=== PATIENT | male | born 1980 | race Caucasian/White ===

== ENCOUNTER 2016-09-14 15:07 | Inpatient (IN) | payer BC, OTHER ==
[~2016-09-14] VITALS: Ht 177.8 cm; Wt 83.5 kg
[2016-09-14] MEDS ORDERED: CLONIDINE HCL 0.1 MG TABLET PO PRN (20:00)
[2016-09-14] MEDS ORDERED: BUPRENORPHINE HCL 2 MG TAB.SUBL SL PRN (20:00)
[2016-09-14] MEDS ORDERED: DICYCLOMINE HCL 20 MG TABLET PO PRN (20:00)
[2016-09-14] MEDS ORDERED: LORAZEPAM 2 MG/1 ML VIAL IM PRN (20:00)
[2016-09-14] MEDS ORDERED: diphenhydrAMINE 50 MG CAPSULE PO PRN (20:00)
[2016-09-14] MEDS ORDERED: LOPERAMIDE HCL 2 MG CAPSULE PO PRN ×2 (20:00)
[2016-09-14] MEDS ORDERED: MIRALAX 17 GM POWD.PACK PO PRN (20:00)
[2016-09-14] MEDS ORDERED: LORAZEPAM 1 MG TABLET PO PRN ×2 (20:00)
[2016-09-14] MEDS ORDERED: MAGNESIUM HYDROXIDE 30 ML LIQUID UDC PO PRN (20:00)
[2016-09-14] MEDS ORDERED: ACETAMINOPHEN 325 MG TABLET PO PRN (20:00)
--- NOTE | 2016-09-14 20:10 | NUR ---
ADMISSION NOTE: Patient is a 35 y.o male admitted at [facility] at approximately 2010 pm of 09/14/16 for medically supervised withdrawal from Opiates, Benzo & ETOH dependence. Body search done and skin check performed in Room 315, no contraband found. Pt noted with on both arms d/t eczema. Pt is 5'10" tall and weighs 185 lbs in a standing scale. Pt is cooperative during assessment. Patient is oriented to floor unit and room. Patient follows a regular diet at home with no known food and drug allergies. Pt wishes to be full Code. Patient is alert & oriented x4, ambulatory with a steady gait. Speech is clear and audible. Patient appears anxious but cooperative during interview. No shortness of breath noted. Respiration even & unlabored. Abdomen soft & non-distended. Bowel sounds active in all four quadrants. Patient complains of 7/10 body aches, nausea, anxiety & 7/10 headache. Pt denies any sweating, chills & diarrhea. No hand tremors noted. COWS 13 CIWA 10 noted. Vitals upon admission: B/P 131/95, [place] 76, Temp 98.2, RR 16, O2Sat 99%. Patient noted with past medical history of Anxiety, Depression, GERD, Insomnia, Bipolar disorder, Asthma, Chronic Back Pain, Back Surgery, herniated disk, Pancreatitis (2013), history of Seizure d/t benzo and ETOH withdrawal (May 2016). Pt reported attempt of suicide in the past. Pt currently denies SI/HI. Pt was able to provide urine sample for drug screen and is voiding clear yellow urine with no problems. Substance use: 1. ETOH- Pt drinks 1 pint of whiskey or 6-10 cans of beer daily for 18 days. Last drink was 6 beers on 09/13/16. Pt has been drinking since 18 years old. 2. Valium- Pt has been taking prescribed Valium 10-15mg daily for for anxiety for 18 days. 3. [place]- Pt used prescription [place] 50-60mg daily for 18 days. Last use was 20mg on the day of admission 09/14/16. Pt is not taking medication as prescribed. Pt has been using [place] for his back pain since 2012. 4. Morphine- Pt uses 10-20mg intravenously daily for 18 days. Last use was 20mg the day prior to admission 09/13/16. Pt has been using since 2013. 5. Fentanyl- Pt uses intranasally in an unknown amount. Pt uses 3-4times a week for 18 days. Last use was 09/13/16. Pt has reccently started using it this year. 6. Cocaine- Pt uses 1-2 grams daily for 18 days. Last use 2 grams on the day of admission 09/14/16. 7. Marijuana- Pt uses 2-3 grams daily for 18 days. last use was 2 grams on the day of admission 09/14/16. Treatment History: -[facility] for 90 days (October to January 2016) -[facility] for 12 days ended 08/28/2015 -[facility] for 60 days (june to Jul 2015) Patient denies being hospitalized in the last 30 days. Patient reports his longest period of sobriety was for 90 days from October 2015 to January 2016. Patient reports symptoms when he does not use as tremors, blurred vision, headache, body aches, sweating, chills, nausea, stomach cramps, restless legs, anxiety. Last Bowel movement was yesterday. Patient smokes 10 cigarettes daily. Patient has been seeing his PCP Dr. Veena Man. Urine drug screen came back positive for Opiates, Cocaine & Cannabinoids. Fall & Seizure precautions are in place. All needs attended & met. Safety precautions are in place. Bed locked in lowest position. Both side rails padded & up. Call light within pt's reach. Dr. Rowe has seen pt. Awaiting for admission order. Will continue to monitor patient.
[2016-09-14] MEDS ORDERED: THIAMINE HCL 200 MG/2 ML VIAL IM ONE (21:00)
[2016-09-14 21:27] LABS: BASOPHILS # (AUTO) 0.4 K/uL (0.0-0.2); BASOPHILS % (AUTO) 2.6 % (0.0-2.0); EOSINOPHILS # (AUTO) 0.6 K/uL (0.0-0.7); EOSINOPHILS % (AUTO) 3.9 % (0.0-7.0); HEMATOCRIT 42.7 % (40.0-50.0); HEMOGLOBIN 14.7 g/dL (14.0-18.0); LYMPHOCYTES # (AUTO) 2.6 K/uL (0.8-4.8); LYMPHOCYTES % (AUTO) 17.5 % (20.5-51.5); MEAN CORPUSCULAR HEMOGLOBIN 31.2 uug (27.0-31.0); MEAN CORPUSCULAR HGB CONC 34 g/dL (32.0-37.0); MEAN CORPUSCULAR VOLUME 90.8 fL (82.0-92.0); MONOCYTES # (AUTO) 1.1 K/uL (0.1-1.30); MONOCYTES % (AUTO) 7.1 % (0.0-11.0); NEUTROPHILS # (AUTO) 10.3 K/uL (1.8-8.9); NEUTROPHILS % (AUTO) 68.9 % (38.5-71.5); PLATELET COUNT (AUTO) 377 K/uL (150-450); RED BLOOD CELL COUNT(AUTO) 4.71 MIL/uL (4.70-6.10); RED CELL DISTRIBUTION WIDTH 13.4 % (11.5-14.5)
[2016-09-14] MEDS ORDERED: ALBUTEROL SULFATE 8 GM HFA.AER.AD IH PRN (21:30)
[2016-09-14] MEDS ORDERED: BUPRENORPHINE HCL 2 MG TAB.SUBL SL SCH ×2 (21:30→22:00)
[2016-09-14] MEDS ORDERED: DIAZEPAM 10 MG TABLET PO PRN ×2 (21:30)
[2016-09-14] MEDS ORDERED: DIAZEPAM 10 MG TABLET PO SCH ×2 (21:30→22:00)
[2016-09-14] MEDS ORDERED: DIAZEPAM 5 MG TABLET PO PRN (21:30)
[2016-09-14 21:35] LABS: ETHANOL < 3 MG/DL (0-0)
[2016-09-14 21:49] LABS: *AMPHETAMINE, URINE NEGATIVE (NEGATIVE); *BARBITURATE, URINE NEGATIVE (NEGATIVE); *CANNABINOID, URINE POSITIVE (NEGATIVE); *COCCAINE, URINE POSITIVE (NEGATIVE); *OPIATE, URINE POSITIVE (NEGATIVE); *PHENCYCLIDINE SCREEN,URINE NEGATIVE (NEGATIVE)
[2016-09-14 21:54] LABS: BAND % (MANUAL) 3 % (0-10); EOSINOPHILS % (MANUAL) 2 % (0-8); LYMPHOCYTES % (MANUAL) 18 % (20-40); MONOCYTES % (MANUAL) 6 % (2-10); NEUTROPHILS % (MANUAL) 71 % (42-75); PLATELET ESTIMATE ADEQUATE
[2016-09-14 21:58] LABS: ALANINE AMINOTRANSFERASE 30 U/L (16-63); ALBUMIN 3.9 g/dL (3.4-5.0); ALKALINE PHOSPHATASE 65 U/L (50-136); AMYLASE 50 U/L (25-115); ASPARTATE AMINOTRANSFERASE 22 U/L (15-37); BILIRUBIN,TOTAL 0.3 mg/dL (0.2-1.0); CALCIUM 9.1 mg/dL (8.5-10.1); CARBON DIOXIDE 30 mmol/L (21-32); CHLORIDE 105 mmol/L (98-107); CREATININE 0.8 mg/dL (0.6-1.3); GFR 109 mL/min (>60); GLUCOSE 75 mg/dL (74-106); LIPASE 114 U/L (73-393); POTASSIUM 4.2 mmol/L (3.5-5.1); SODIUM SERUM 142 mmol/L (136-145); TOTAL PROTEIN, SERUM 7.4 g/dL (6.4-8.2); UREA NITROGEN, BLOOD 10 mg/dL (7-18)
[2016-09-14 21:59] LABS: THYROID STIMULATING HORMONE 1.486 mIU/mL (0.358-3.740)
[2016-09-14 22:00] LABS: HIV-1 p24 ANTIGEN NON REACTIVE (NONREACTIVE); HIV-1/2 ANTIBODY NON REACTIVE (NONREACTIVE)
--- NOTE | 2016-09-14 22:11 | NUR ---
Prn administration Patient verbalized 8/10 body aches, 7/10 headache, and nausea. PRN Motrin, Robaxin, Zofran & Benadryl given as ordered. Will reassess for effectiveness of medicaiton. Will continue to monitor.
[2016-09-14] MEDS: IBUPROFEN 600 MG TABLET PO PRN (22:12)
[2016-09-14] MEDS: METHOCARBAMOL 750 MG TABLET PO PRN (22:12)
[2016-09-14] MEDS ORDERED: BUPRENORPHINE HCL 2 MG TAB.SUBL SL ONE (22:16)
[2016-09-14] MEDS ORDERED: DIAZEPAM 10 MG TABLET ONE (22:16)
[2016-09-14] MEDS: ONDANSETRON ODT 4 MG TAB.RAPDIS SL PRN (22:20)
--- NOTE | 2016-09-14 23:11 | NUR ---
PRN reassessment Patient verbalized relief from pain. 3/10 body aches and 3/10 headache noted at this time. Improved nausea noted. Benadryl given was not effective at this time. Pt still having trouble sleeping. will contiue to monitor.
[2016-09-15] VITALS: BP 125/84
[2016-09-15] MEDS ORDERED: DICY10CA59 PO (03:25)
[2016-09-15] MEDS ORDERED: PRAZ5CAP2 PO (03:34)
[2016-09-15] MEDS ORDERED: QUET300T2 PO (03:34)
[2016-09-15] MEDS ORDERED: IBUP-23 PO (03:34)
[2016-09-15] MEDS ORDERED: OMEP20TA20 PO (03:34)
[2016-09-15] MEDS ORDERED: Celexa (03:34)
[2016-09-15] MEDS ORDERED: DIVA500T2 PO (03:34)
[2016-09-15] MEDS ORDERED: DIAZ5TAB PO (03:34)
[2016-09-15] MEDS ORDERED: ALBU18HF2 INH (03:35)
[2016-09-15 04:00] VITALS: BP 120/81
[2016-09-15] MEDS: HYDROXYZINE PAMOATE 25 MG CAPSULE PO PRN (04:31)
[2016-09-15] MEDS: KETOROLAC TROMETHAMINE 30 MG INJ IM PRN ×2 (04:32→12:21)
[2016-09-15] MEDS: ONDANSETRON ODT 4 MG TAB.RAPDIS SL PRN ×3 (04:32→20:40)
--- NOTE | 2016-09-15 04:32 | NUR ---
Prn administration Patient complained of 7/10 body aches, sweating, chills, anxiety, mild headache & nausea. Bilateral hand tremors noted. COWS 13 CIWA 9 noted. Vitals stable. temp 98.0, [place] 65, RR 16, O2Sat 95% B/P 120/81. Pt was given PRN Toradol, Vistaril, Zodran & Subutex for withdrawals. Safety precautions in place. Will reassess in 1 hour for effectiveness of medicaiton.
[2016-09-15] MEDS ORDERED: KETOROLAC TROMETHAMINE 30 MG INJ ONE (04:36)
--- NOTE | 2016-09-15 05:32 | NUR ---
Prn Reassessment Patient verbalized a relief from pain. No nausea noted at this time. Patient appears calm. Improved tremors noted. COWS 6 CIWA 4 at this time. PRN medication effective. will continue to monitor patient.
--- NOTE | 2016-09-15 07:01 | NUR ---
END OF SHIFT NOTE: Patient is a 35 y/o male admitted on 09/14/16 for ETOH, Opiates & Benzo dependence. Patient with past medical history of GERD, Insomnia, Bipolar, Anxiety, Depression, Asthma, Chronic back pain, back surgery, Pancreatitis (2013), seizure d/t benzo withdrawal. pateitn is trisha regular diet with no known food and drug allergies. Full Code status. Patient with eczema noted on both arms. Last COWS 6 CIW 4 noted. Pt was given PRN benadryl, Motrin, Robaxin, Zofran, Toradol, vistaril, Zofran PO, & Zofran IM. Vitals WNL. Pt was having trouble sleep ing and only slept forPt slept for 1 hour. Pt consumed 855ml of fluids. Voided 2x with no bowel movement. All needs attended & met. Safety precautions are in palce. Will endorse pt to day shift nurse.
[2016-09-15] MEDS: ONDANSETRON 4 MG/2 ML VIAL IM PRN ×2 (07:12→17:35)
--- NOTE | 2016-09-15 07:35 | NUR ---
START OF SHIFT Received report from night nurse. 35 year old male patient admitted on 09/14/16 for ETOH/Benzo/Opiate/Cocaine/Marijuana dependence. Pt reports using at this rate for 18 days. Pt has been placed on a 5 day Subutex taper, and 5 day Valium taper and is tolerating well. Pt has hx of GERD, Insomnia, Bipolar, anxiety, depression, asthma, chronic back pain, back surgery, pancreatitis, withdrawal induced seizure and stress induced eczema. NKA reported, full code and regular diet. PRN Zofran x2, Benadryl, Motrin, Robaxin, Toradol, Vistaril and Subutex. Vital signs remain WNL. Most recent COWS 6 and CIWA 4. All needs met at this time. Safety precautions are in place, will continue to monitor.
[2016-09-15] MEDS: PANTOPRAZOLE SODIUM 40 MG TABLET.DR PO SCH (07:57)
[2016-09-15 08:17] VITALS: BP 109/72
[2016-09-15] MEDS: FOLIC ACID 1 MG TABLET PO SCH (08:54)
[2016-09-15] MEDS: MULTIVITAMINS,THERAPEUTIC TABLET PO SCH (08:54)
[2016-09-15] MEDS: THIAMINE HCL 100 MG TABLET PO SCH (08:54)
[2016-09-15] MEDS: DIAZEPAM 10 MG TABLET PO SCH ×3 (08:54→20:23)
[2016-09-15] MEDS: LIDOCAINE 5% PATCH TD SCH (08:55)
[2016-09-15] MEDS: BUPRENORPHINE HCL 2 MG TAB.SUBL SL SCH ×4 (08:55→20:26)
[2016-09-15] MEDS ORDERED: HYDROCORTISONE 1% LOTION 118 ML BOTTLE TOP SCH (09:00)
[2016-09-15] MEDS ORDERED: TUBERCULIN,PURIF.PROT.DERIV. 5 TU/0.1 ML TEST ID ONE (09:00)
[2016-09-15] MEDS ORDERED: GABAPENTIN 300 MG CAPSULE PO SCH ×2 (09:00→21:00)
[2016-09-15] MEDS ORDERED: DIAZEPAM 10 MG TABLET PO ONE (11:30)
--- NOTE | 2016-09-15 11:39 | NUR ---
PRN ZOFRAN Pt complains of nausea with 1 episode of emesis. PRN Zofran administered. Will reassess.
--- NOTE | 2016-09-15 11:39 | NUR ---
ONE TIME VALIUM Pt CIWA score is 13, pt has increased anxiety, hot cold chills, agitation, nausea and 1x emesis and tremors are present. Dr. Rowe ordered 10 mg Valium one time. Will reassess.
[2016-09-15] MEDS: HYDROCORTISONE 1% CREAM 30 GM TUBE TP SCH ×2 (11:41→17:00)
[2016-09-15] MEDS ORDERED: QUETIAPINE FUMARATE 25 MG TABLET PO ONE (12:00)
[2016-09-15 12:09] VITALS: BP 126/84
--- NOTE | 2016-09-15 12:21 | NUR ---
PRN TORADOL Pt complains of 8/10 generalized pain that he describes as aching related to withdrawals. Nonpharmacological methods encouraged but ineffective. PRN Toradol administered as ordered. Will reassess.
--- NOTE | 2016-09-15 12:39 | NUR ---
REASSESSMENT Valium was effective. CIWA decreased from 13 to 7 at this time. Zofran was effective, pt denies further episodes of emesis and denies nausea at this time. Will continue to monitor.
--- NOTE | 2016-09-15 13:15 | NUR ---
REASSESSMENT Pt states Toradol was effective and pain decreased to 5/10.
[2016-09-15] MEDS: GABAPENTIN 300 MG CAPSULE PO SCH (14:27)
[2016-09-15] MEDS: MAG HYDROX/AL HYDROX/SIMETH 30 ML LIQUID UDC PO PRN (14:31)
--- NOTE | 2016-09-15 14:31 | NUR ---
PRN MAALOX Pt c/o of heartburn, PRN Maalox administered. Education provided on diet.
--- NOTE | 2016-09-15 15:32 | NUR ---
REASSESSMENT Pt denies heartburn at this time and reports medication was effective.
[2016-09-15] MEDS ORDERED: ALBUTEROL SULFATE 8 GM HFA.AER.AD IH PRN (16:00)
[2016-09-15] MEDS ORDERED: ALBUTEROL SULFATE 2.5 MG/3 ML NEBU NEB PRN (16:00)
--- NOTE | 2016-09-15 16:35 | NUR ---
MD communication Notified Dr Rowe and Dr Guzman of ECG results. NNO at this time.
[2016-09-15 16:59] VITALS: BP 124/67
--- NOTE | 2016-09-15 17:35 | NUR ---
PRN ZOFRAN Pt has emesis x1 and complains of nausea. PRN Zofran 4mg IM administered as ordered. Will reassess.
--- NOTE | 2016-09-15 18:05 | NUR ---
REASSESSMENT Pt denies nausea at this time. Pt denies further episodes of emesis.
--- NOTE | 2016-09-15 19:06 | NUR ---
END OF SHIFT Endorsed to car shifter nurse. 35 year old male patient admitted on 09/14/16 for ETOH/Benzo/Opiate/Cocaine/Marijuana dependence. Pt reports using at this rate for 18 days. Pt has been placed on a 5 day Subutex taper, and 5 day Valium taper and is tolerating well.PRN Zofran x2, Toradol, Maalox, and one time order of Valium 10 mg administered and effective. Vital signs remain WNL. Most recent COWS 6 and CIWA 7. All needs met at this time. Safety precautions are in place, car shifter will continue to monitor.
[2016-09-15 20:00] VITALS: BP 128/85
[2016-09-15] MEDS: PRAZOSIN HCL 1 MG CAPSULE PO SCH (20:21)
[2016-09-15] MEDS: QUETIAPINE FUMARATE 200 MG TABLET PO SCH (20:22)
[2016-09-15] MEDS: DICYCLOMINE HCL 20 MG TABLET PO SCH (20:22)
[2016-09-15] MEDS: IBUPROFEN 600 MG TABLET PO PRN (20:23)
--- NOTE | 2016-09-15 20:23 | NUR ---
MOTRIN PRN ADMINISTRATION Pt stated " Can I have Motrin before I go downstairs? My head is hurting. It's like a 7 right now." Motrin 600 mg PO PRN was given. Pt was encouraged to notify staff of any changes in condition or of any concerns. Pt verbalized an understanding. All safety measures in place. Will monitor for effectiveness.
[2016-09-15] MEDS: DIVALPROEX 500 MG TABLET.DR PO SCH (20:24)
--- NOTE | 2016-09-15 20:30 | NUR ---
START OF SHIFT NOTE Pt is a 35 y/o male admitted for ETOH, Valium, [place], Morphine, Fentanyl, Cocaine, and Marijuana dependence and use. Pt has NKA but reported a PMH of GERD, Insomnia, Bipolar, anxiety, depression, asthma, chronic back pain, back surgery, pancreatitis, stress induced eczema, and seizure r/t ETOH and Benzo w/d. Per day shift nurse pt was placed on a 5 day Subutex taper and 5 day Valium taper (day 1) and is tolerating medication well with no s/r or a/r reported. Pt received Toradol IM PRN, Maalox PO PRN, Zofran 4 mg ODT x 2, and Valium 10 mg PO PRN x 1 during the day shift. Per day shift nurse pt has been having constant nausea throughout the day. Last CIWA: 7 and COW: 6 (1600). At this time pt reports having nausea without episodes of emesis. Pt stated "I'm going to go down for a quick cigarette and then I want to take the medication." Pt was suggested to hold off from smoking and encouraged x 3 with risks and benefits but the pt still insisted on having a cigarette first. Will continue to monitor.
--- NOTE | 2016-09-15 20:40 | NUR ---
ZOFRAN PRN ADMINISTRATION After scheduled bed time medication was administered to the pt, he began vomiting. Pt was offered Zofran to help with nausea. Pt declined and with encouragement and education pt agreed to take the PRN. Zofran 4 mg ODT was given. Pt was encouraged to notify staff of any changes in condition or of any concerns. Pt verbalized an understanding. All safety measures in place. Will monitor for effectiveness.
[2016-09-15] MEDS ORDERED: Medication Not On Formulary EA (Prazosin Hcl 1 CAP) PO SCH (21:00)
[2016-09-15] MEDS ORDERED: DIVALPROEX 500 MG TABLET.DR PO SCH ×2 (21:00)
--- NOTE | 2016-09-15 21:20 | NUR ---
OSCAR PRN REASSESSMENT Pt stated " My head isn't hurting as bad right now. It's less than a 4/10." PRN effective. Will continue to monitor.
--- NOTE | 2016-09-15 21:40 | NUR ---
OSCAR PRN REASSESSMENT Pt is asleep in bed with no signs of discomfort/distress or nausea noted. Pt's breathing is even and unlabored. Respirations are 16 breaths per minute. PRN effective. All safety measures in place. Will continue to monitor. Addendum: 09/16/16 at 0650 by ELEUTERIO SOUSA LVN KRISTI PRN REASSESSMENT
--- NOTE | 2016-09-16 | NUR ---
COW, CIWA, AND VITALS REFUSED Pt refused to be assessed and have vitals taken at this time. Pt was encouraged x 3 with risks and benefits explained, but the pt still declined. All safety measures in place. Will continue to monitor. Addendum: 09/16/16 at 0036 by ELEUTERIO SOUSA LVN Amended: Links added.
[2016-09-16] MEDS: IBUPROFEN 600 MG TABLET PO PRN (03:44)
--- NOTE | 2016-09-16 03:44 | NUR ---
MOTRIN PRN ADMINISTRATION /NURSE'S NOTE Staff over heard pt vomiting in his bathroom. Upon entering the room, pt stated " My head is hurting again. Can I have something for it? It's about a 11/17." Motrin 600 mg PO PRN was given. Pt was encouraged to take Zofran to help with current circumstances, but the pt declined. Pt was encouraged x 3 with risks and benefits explained but the pt still declined. Pt was encouraged to take in some ice chips and rest. Pt verbalized an understanding. Will continue to monitor.
[2016-09-16 04:26] VITALS: BP 89/49
[2016-09-16] MEDS ORDERED: DIAZEPAM 10 MG TABLET PO PRN (04:30)
--- NOTE | 2016-09-16 04:38 | NUR ---
VALIUM PRN ADMINISTRATION Pt was noted vomiting again in the bathroom, this time pt was notably sweating with visible tremors. Once the pt proceeded to ambulate his gait was very unsteady and he reported that he was very dizzy. Pt's current vital signs : 89/49 HR: 104 R:20 T: 97.6 Pulse Oxygen: 89% (Relayed to charge nurse) Pt placed on Oxygen 2L via nasal canula. Pt's current COW: 22 and CIWA: 23. MD notified of current circumstances. Order for Valium 20 mg PO PRN x1 given. Order noted and carried out. Pt received x1 dose of Valium 20 mg PO. Pt was encouraged to notify staff of any changes in condition or of any additional concerns. Pt verbalized an understanding. All safety measures in place. Bedside monitoring.
[2016-09-16] MEDS: ONDANSETRON 4 MG/2 ML VIAL IM PRN ×2 (04:42→20:20)
--- NOTE | 2016-09-16 04:42 | NUR ---
ZOFRAN PRN ADMINISTRATION Pt stated " I'll take the Zofran shot now." Zofran 4 mg IM PRN given. Will continue to monitor at pt's bedside.
--- NOTE | 2016-09-16 05:40 | NUR ---
MOTRIN, VALIUM , AND ZOFRAN PRN REASSESSMENT Pt is asleep with no signs of discomfort/distress noted. Emesis has ceased. Pt's oxygen saturation without oxygen supplementation is 96% at this time . Pts breathing is even and unlabored. Respirations are 16 breaths per minute. COW: 8 and CIWA: 9 PRNS effective. All safety measures in place. Will continue to monitor.
[2016-09-16 07:31] LABS: BASOPHILS # (AUTO) 0.4 K/uL (0.0-0.2); BASOPHILS % (AUTO) 1.4 % (0.0-2.0); EOSINOPHILS # (AUTO) 0.7 K/uL (0.0-0.7); EOSINOPHILS % (AUTO) 2.6 % (0.0-7.0); HEMATOCRIT 44.1 % (40.0-50.0); HEMOGLOBIN 15.3 g/dL (14.0-18.0); LYMPHOCYTES # (AUTO) 1.9 K/uL (0.8-4.8); LYMPHOCYTES % (AUTO) 6.8 % (20.5-51.5); MEAN CORPUSCULAR HEMOGLOBIN 31.4 uug (27.0-31.0); MEAN CORPUSCULAR HGB CONC 35 g/dL (32.0-37.0); MEAN CORPUSCULAR VOLUME 90.6 fL (82.0-92.0); MONOCYTES # (AUTO) 0.5 K/uL (0.1-1.30); MONOCYTES % (AUTO) 1.6 % (0.0-11.0); NEUTROPHILS % (AUTO) 87.6 % (38.5-71.5); PLATELET COUNT (AUTO) 383 K/uL (150-450); RED BLOOD CELL COUNT(AUTO) 4.87 MIL/uL (4.70-6.10); RED CELL DISTRIBUTION WIDTH 13.3 % (11.5-14.5); WHITE BLOOD COUNT (AUTO) 28.5 K/uL (4.0-11.2)
--- NOTE | 2016-09-16 07:32 | NUR ---
START OF SHIFT Received report from [facility] shift lead nurse. 56 year old male patient admitted on 09/11/16 for ETOH withdrawals. Pt has been placed on a 5 day Ativan taper and is tolerating well. compliant with treatment plan and medication orders. Most recent CIWA is 0. No PRN medications were needed or administered at night. V/S remain WNL. Pt ambulates with steady gait. Pt attends group activity and socialized with peers. Pt remains safe. Pt slept for 5 hours. All needs met at this time. Safety precautions are in place, will continue to monitor. Addendum: 09/16/16 at 1921 by PARMJIT BAJWA RN INCORRECT PATIENT
[2016-09-16 07:33] LABS: CALCIUM 9.3 mg/dL (8.5-10.1); CREATININE 0.9 mg/dL (0.6-1.3); MAGNESIUM 1.9 mg/dL (1.8-2.4); PHOSPHOROUS 2.7 mg/dL (2.5-4.9); POTASSIUM 4.8 mmol/L (3.5-5.1)
--- NOTE | 2016-09-16 07:33 | NUR ---
START OF SHIFT Received report from retail shift manager nurse. 35 year old male patient admitted on 09/14/16 for ETOH/Benzo/Opiate/Cocaine/Marijuana dependence. Pt reports using at this rate for 18 days. Pt has been placed on a 5 day Subutex taper, and 5 day Valium taper and is tolerating well.PRN Zofran x2, Motrin and Valium administered at night and effective. Vital signs remain WNL. Most recent COWS 8 and CIWA 9. Pt had episode of emesis at night, had episode of desaturation, per MD orders oxygenation implemented and effective. Pt reports difficulty urinating, refuses bladder scan at night and requests for it later. All needs met at this time. Safety precautions are in place, will continue to monitor.
--- NOTE | 2016-09-16 07:42 | NUR ---
END OF SHIFT NOTE Pt is a 35 y/o male admitted for ETOH, Valium, [place], Morphine, Fentanyl, Cocaine, and Marijuana dependence and use. Pt has NKA but reported a PMH of GERD, Insomnia, Bipolar, anxiety, depression, asthma, chronic back pain, back surgery, pancreatitis, stress induced eczema, and seizure r/t ETOH and Benzo w/d. Pt was placed on a 5 day Subutex taper and 5 day Valium taper (day 2) and is tolerating medication well with no s/r or a/r reported. Pt received Zofran 4 mg ODT , Motrin 600 mg PO PRN x 2, Valium 20 mg PO PRN x 1 , and Zofran 4 mg IM PRN during the shift. Pt is currently off of oxygen and is ambulating with a steady gait and denies any nausea or vomiting. Pt reported having difficulty relieving himself in the restroom. Bladder scan ordered. Last CIWA: 9 and COW: 8 (0400). Pt slept for a total of 8 hours intermittently. Endorsed to the oncoming nurse.
--- NOTE | 2016-09-16 07:55 | NUR ---
MD COMMUNICATION Notified Dr. Rowe of WBC count 28.5, neut % 87.6 and neutrophil # 25.0. V/S: T:98.6, B/P 118/74, HR: 101, SpO2:95% RR 16 even and unlabored, and 7/10 abdominal pain and distention. Per MD order to order Stat blood culture x2. MD also notified about bladder retention, bladder scan confirms >999ml urine. Order for kimble catheter to be inserted.
--- NOTE | 2016-09-16 07:56 | NUR ---
MD communication Dr Rowe notified by primary nurse for urinary retention and elevated WBC, ordered UA, C&S, kimble catheter and blood cultures x2. unable to enter orders, orders entered.
[2016-09-16 08:03] VITALS: BP 118/74
--- NOTE | 2016-09-16 08:30 | NUR ---
URINARY CATHETER INSERTION Inserted 16Fr indwelling catheter Per MD order, draining 1200ml clear yellow urine, 5 ml sterile water inserted in balloon, secured to leg no difficulties or complaints pt is stable.
[2016-09-16 09:13] LABS: EOSINOPHILS % (MANUAL) 2 % (0-8); LYMPHOCYTES % (MANUAL) 12 % (20-40); NEUTROPHILS % (MANUAL) 86 % (42-75)
[2016-09-16 09:17] LABS: *BILIRUBIN,URIN NEGATIVE (NEGATIVE); *BLOOD, URINE NEGATIVE (NEGATIVE); *CLARITY,URINE CLEAR (CLEAR); *COLOR,URINE YELLOW (YELLOW); *KETONES,URINE NEGATIVE (NEGATIVE); *PROTEIN,URINE NEGATIVE (NEGATIVE); *UROBILINOGEN,URINE 0.2 E.U./dl (NORMAL); LEUKOCYTE ESTERASE ,URINE NEGATIVE (NEGATIVE); NITRITE, URINE NEGATIVE (NEGATIVE); UGLUCOSE NEGATIVE (NEGATIVE)
[2016-09-16 09:23] LABS: BACTERIA,URINE FEW /HPF (NONE SEEN); RBC,URINE 0-3 /HPF (0-3); WBC,URINE 0-3 /HPF (0-3)
[2016-09-16] MEDS: BUPRENORPHINE HCL 2 MG TAB.SUBL SL SCH ×3 (09:44→20:29)
[2016-09-16] MEDS: MULTIVITAMINS,THERAPEUTIC TABLET PO SCH (09:44)
[2016-09-16] MEDS: KETOROLAC TROMETHAMINE 30 MG INJ IM PRN (09:45)
[2016-09-16] MEDS: THIAMINE HCL 100 MG TABLET PO SCH (09:45)
[2016-09-16] MEDS: GABAPENTIN 300 MG CAPSULE PO SCH ×3 (09:45→20:31)
[2016-09-16] MEDS: FOLIC ACID 1 MG TABLET PO SCH (09:45)
[2016-09-16] MEDS: DIAZEPAM 5 MG TABLET PO SCH ×4 (09:45→20:31)
[2016-09-16] MEDS: DICYCLOMINE HCL 20 MG TABLET PO SCH ×3 (09:45→20:32)
--- NOTE | 2016-09-16 09:45 | NUR ---
PRN TORADOL Pt complains of 8/10 body aches and abdominal pain. PRN Toradol administered as ordered. Will reassess.
[2016-09-16] MEDS: PANTOPRAZOLE SODIUM 40 MG TABLET.DR PO SCH (09:51)
[2016-09-16] MEDS: LIDOCAINE 5% PATCH TD SCH (09:52)
[2016-09-16] MEDS: HYDROCORTISONE 1% CREAM 30 GM TUBE TP SCH ×2 (09:52→17:29)
[2016-09-16] MEDS: DIVALPROEX 500 MG TABLET.DR PO SCH ×2 (09:59→20:37)
--- NOTE | 2016-09-16 10:15 | NUR ---
REASSESSMENT Pt states toradol was effective and pain decreased to 4/10. pt is resting in bed at this time. Deep breathing and rest encouraged.
[2016-09-16 12:57] VITALS: BP 120/76
[2016-09-16] MEDS ORDERED: diphenhydrAMINE 2% 28.4 GM CREAM TP PRN (13:00)
[2016-09-16] MEDS ORDERED: diphenhydrAMINE 25 MG CAP PO PRN (13:00)
[2016-09-16] MEDS: BACLOFEN 10 MG TABLET PO SCH ×2 (15:41→20:29)
[2016-09-16] MEDS: MAG HYDROX/AL HYDROX/SIMETH 30 ML LIQUID UDC PO PRN (17:28)
[2016-09-16 17:42] VITALS: BP 132/85
[2016-09-16] MEDS ORDERED: ASPIRIN/ACETAMINOPHEN/CAFFEINE TABLET PO PRN (17:45)
--- NOTE | 2016-09-16 19:15 | NUR ---
START OF SHIFT Received 35 year old male patient admitted on 09/14/16 for ETOH, Valium, [place], Morphine, Fentanyl, Cocaine, and Marijuana dependency/ Pt is full code with WILLY. He reports a PMhx of GERD, insomnia, bipolar, anxiety, depression, asthma, chronic back pain, back surgery, pancreatitis (2013), and seizure d/t ETOH and benzo withdrawal. (may 2016). He reports drinking ETOH 1 pint whiskey or 6-10 beers daily for 18 days. Valium 10-15 mg daily for 18 days, [place] PO 50-60 mg daily for 18 days, Morphine IV 10-20 mg daily for 18 days, Fentanyl of unknown amount for 18 days, Cocaine (snort) 1-2 grams daily for 18 days and Marijuana 2-3 grams daily for 18 days. He is placed on 5 day Subutex and 5 day Valium taper and tolerating well. Per endorsement, pt with catheter d/t urinary retention. Pt received PRN Toradol, and Maalox. Pt is alert and oriented x4, breathing is even and unlabored. Pt safe with bed locked in lowest position, side rails up x2 and call light within reach. Will continue to monitor.
--- NOTE | 2016-09-16 19:26 | NUR ---
END OF SHIFT Endorsed to warehouse supervisor 3rd shift nurse. 35 year old male patient admitted on 09/14/16 for ETOH/Benzo/Opiate/Cocaine/Marijuana dependence. Pt reports using at this rate for 18 days. Pt has been placed on a 5 day Subutex taper, and 5 day Valium taper and is tolerating well.PRN Toradol, Maalox, and Benadryl cream administered and effective. Vital signs remain WNL. Most recent COWS 6 and CIWA 6. Pt did not complain of nausea throughout shift. CXR was done and results are WNL. Pt has kimble catheter for difficulty urinating and is tolerating well, urine is yellow. Pt denies pain. All needs met at this time. Safety precautions are in place, warehouse supervisor 3rd shift will continue to monitor.
[2016-09-16 20:00] VITALS: BP 141/89
--- NOTE | 2016-09-16 20:20 | NUR ---
PRN ZOFRAN Pt complains of nausea. Pt observed to be dry heaving, irritable, and restless. PRN Zofran 4 mg IM administered as ordered. Safety measures in place, will continue to monitor for effectiveness.
[2016-09-16] MEDS: PRAZOSIN HCL 1 MG CAPSULE PO SCH (20:30)
[2016-09-16] MEDS: QUETIAPINE FUMARATE 200 MG TABLET PO SCH (20:41)
--- NOTE | 2016-09-16 20:50 | NUR ---
PRN ZOFRAN REASSESSMENT PRN Zofran IM effective. Pt reports relief from PRN Zofran, pt states " yeah, I feel a lot better." Pt lying comfortably in bed. Breathing even and unlabored, safety measures in place. Will continue to monitor.
[2016-09-17] VITALS: BP 111/70
[2016-09-17 04:00] VITALS: BP 115/70
--- NOTE | 2016-09-17 04:00 | NUR ---
COWS/CIWA DEFERRED COWS/CIWA deferred d/t order is Q4H while awake. Pt lying in bed with eyes closed noted to be asleep. Breathing is even and unlabored, respirations 16, safety measures in place, will continue to monitor.
--- NOTE | 2016-09-17 04:00 | NUR ---
NURSING NOTE 0400 vitals obtained. Pt with SpO2 of 87%. Pt placed on oxygen 2L via nasal cannula. SpO2 95%. Will continue to monitor.
[2016-09-17] MEDS: PANTOPRAZOLE SODIUM 40 MG TABLET.DR PO SCH (06:52)
--- NOTE | 2016-09-17 07:09 | NUR ---
Start of Shift Endorsement received from nightshift nurse. Pt is a 35 y/o male that has been admitted for opiate, benzo and alcohol dependence. Pt has been placed on a 5 day Subutex taper and 5 day Valium taper. Pt is tolerating the taper, withdrawing moderately AEB COWS 5, CIWA 4. Pt received Zofran IM at 2020. Pt presents with VS WNL. Full Code. PT is alert and oriented x4. Pt is in STABLE condition at this time. Remains compliant with medication and diet regimen. All needs have been met, All safety measures in place per hospital policy. Bed in lowest position, side rails up x2, call-light within reach. Will continue to monitor
--- NOTE | 2016-09-17 07:17 | NUR ---
END OF SHIFT Pt remained stable. Pt had complaints of 7/10 generalized body aches d/t withdrawal. COWS:10 CIWA:10 at start of shift. Taper medications effective in relieving withdrawal symptoms as evidenced by decrease in COWS: 5, and CIWA: 4 at 0000. He received PRN medication of Zofran at 2020 d/t complaints of nausea with no episode of vomiting. PRN medication was effective. Pt continues with urinary catheter, patent and draining well. He slept a total of 7 hrs, Intake: 300mL, Void: 2000 mL, BM: 0, COWS:5, CIWA:4. Pt remains alert and oriented x4, breathing is even and unlabored, safety measures in place. Endorsed to AM shift.
[2016-09-17 08:00] VITALS: BP 115/73
[2016-09-17] MEDS ORDERED: BUPRENORPHINE HCL 2 MG TAB.SUBL SL SCH (09:00)
[2016-09-17 09:12] LABS: BASOPHILS # (AUTO) 0.1 K/uL (0.0-0.2); BASOPHILS % (AUTO) 0.7 % (0.0-2.0); EOSINOPHILS # (AUTO) 0.8 K/uL (0.0-0.7); EOSINOPHILS % (AUTO) 6.3 % (0.0-7.0); HEMATOCRIT 42.1 % (40.0-50.0); HEMOGLOBIN 14.2 g/dL (14.0-18.0); LYMPHOCYTES # (AUTO) 2.5 K/uL (0.8-4.8); LYMPHOCYTES % (AUTO) 19.2 % (20.5-51.5); MEAN CORPUSCULAR HEMOGLOBIN 30.8 uug (27.0-31.0); MEAN CORPUSCULAR HGB CONC 34 g/dL (32.0-37.0); MEAN CORPUSCULAR VOLUME 91.6 fL (82.0-92.0); MONOCYTES # (AUTO) 1.1 K/uL (0.1-1.30); MONOCYTES % (AUTO) 8.2 % (0.0-11.0); NEUTROPHILS # (AUTO) 8.8 K/uL (1.8-8.9); NEUTROPHILS % (AUTO) 65.6 % (38.5-71.5); PLATELET COUNT (AUTO) 313 K/uL (150-450); RED BLOOD CELL COUNT(AUTO) 4.59 MIL/uL (4.70-6.10); RED CELL DISTRIBUTION WIDTH 13.2 % (11.5-14.5)
[2016-09-17 09:20] LABS: WHITE BLOOD COUNT (AUTO) 13.3 K/uL (4.0-11.2)
[2016-09-17] MEDS: GABAPENTIN 300 MG CAPSULE PO SCH ×2 (09:37→14:48)
[2016-09-17] MEDS: MULTIVITAMINS,THERAPEUTIC TABLET PO SCH (09:37)
[2016-09-17] MEDS: BACLOFEN 10 MG TABLET PO SCH ×3 (09:37→22:49)
[2016-09-17] MEDS: FOLIC ACID 1 MG TABLET PO SCH (09:37)
[2016-09-17] MEDS: DIVALPROEX 500 MG TABLET.DR PO SCH ×2 (09:38→22:45)
[2016-09-17] MEDS: DIAZEPAM 5 MG TABLET PO SCH ×3 (09:38→22:46)
[2016-09-17] MEDS: DICYCLOMINE HCL 20 MG TABLET PO SCH ×3 (09:38→22:41)
[2016-09-17] MEDS: HYDROCORTISONE 1% CREAM 30 GM TUBE TP SCH ×2 (09:38→17:44)
[2016-09-17] MEDS: THIAMINE HCL 100 MG TABLET PO SCH (09:38)
[2016-09-17] MEDS: LIDOCAINE 5% PATCH TD SCH (09:39)
[2016-09-17 09:43] LABS: CALCIUM 9.2 mg/dL (8.5-10.1); CREATININE 0.7 mg/dL (0.6-1.3); MAGNESIUM 1.8 mg/dL (1.8-2.4); PHOSPHOROUS 3.5 mg/dL (2.5-4.9)
[2016-09-17 12:00] VITALS: BP 114/67
[2016-09-17] MEDS ORDERED: BUPRENORPHINE HCL 2 MG TAB.SUBL SL ONE ×2 (13:00→15:15)
[2016-09-17] MEDS: BUPRENORPHINE HCL 2 MG TAB.SUBL SL SCH ×2 (14:49→22:49)
--- NOTE | 2016-09-17 15:00 | NUR ---
PRN Toradol Administered PRN Toradol 30ml for 8/10 in bilateral extremities.
[2016-09-17] MEDS: KETOROLAC TROMETHAMINE 30 MG INJ IM PRN (15:06)
--- NOTE | 2016-09-17 15:30 | NUR ---
Medication re-assessment Toradol was effective, pt reports 2/ paid at this time.
[2016-09-17 16:00] VITALS: BP 129/62
[2016-09-17] MEDS: ONDANSETRON 4 MG/2 ML VIAL IM PRN (18:10)
--- NOTE | 2016-09-17 18:55 | NUR ---
MD communication Pt noted to have severe vomiting after IM zofran given. Dr Rowe ordered IVF to be started. Dr Rowe to enter orders. 22G IV started to L forearm x 1 attempt, rapid blood return noted. Pt tolerated well.
[2016-09-17] MEDS ORDERED: ONDANSETRON 4 MG/2 ML VIAL IV PRN (19:00)
[2016-09-17] MEDS ORDERED: PROCHLORPERAZINE EDISYLATE 10 MG/2 ML VIAL IV PRN (19:00)
--- NOTE | 2016-09-17 19:15 | NUR ---
START OF SHIFT Received 35 year old male patient admitted on 09/14/16 for ETOH, Valium, [place], Morphine, Fentanyl, Cocaine, and Marijuana dependency. Pt is full code with NKA. He is placed on 5 day Subutex and 5 day Valium taper started on 09/15/16nd tolerating well. Per endorsement, pt with episodes of nausea vomiting. Pt now with IV 22 gauge on left forearm, patent and flushing well. No s/s of infiltration or infection noted. New order for NPO and IV 1,000 mL D5 1/2 NS to run at 125 mL /hr. Pt continues with urinary catheter, patent and draining well. Pt received PRN Zofran IM at 1830 which was effective. Pt is alert and oriented x4, breathing is even and unlabored. Pt resting comfortably in bed. Pt safe with bed locked in lowest position, side rails up x2 and call light within reach. Will continue to monitor.
--- NOTE | 2016-09-17 19:20 | NUR ---
End of Shift Endorsement given to nightshift nurse. Pt is a 35 y/o male that has been admitted for opiate, benzo and alcohol dependence. Pt has been placed on a 5 day Subutex taper and 5 day Valium taper. Pt is tolerating the taper, moderate to severe withdrawal at this time AEB COWS 9, CIWA 10. Pt received Zofran IM at 1830 for vomiting x, pt has also received PRN Toradol for 8/10 lower extremities pain, medication was effective, pt reported 2/10 pain after the shot. Pt presents with VS WNL. Full Code. Pt did not participate in groups or activities. Intake: 2200, Void: 2400, BM x0, ate 50% of meals. PT is alert and oriented x4. Pt is in STABLE condition at this time. Remains compliant with medication and diet regimen. All needs have been met, All safety measures in place per hospital policy. Bed in lowest position, side rails up x2, call-light within reach. Will continue to monitor
[2016-09-17 20:00] VITALS: BP 125/85
[2016-09-17] MEDS: PANTOPRAZOLE SODIUM 40 MG VIAL IV SCH (20:25)
[2016-09-17 20:36] LABS: BASOPHILS # (AUTO) 0.1 K/uL (0.0-0.2); BASOPHILS % (AUTO) 0.7 % (0.0-2.0); EOSINOPHILS # (AUTO) 0.7 K/uL (0.0-0.7); LYMPHOCYTES # (AUTO) 1.9 K/uL (0.8-4.8); LYMPHOCYTES % (AUTO) 11.1 % (20.5-51.5); MEAN CORPUSCULAR HEMOGLOBIN 31.2 uug (27.0-31.0); MEAN CORPUSCULAR HGB CONC 34 g/dL (32.0-37.0); MEAN CORPUSCULAR VOLUME 91.3 fL (82.0-92.0); MONOCYTES # (AUTO) 0.8 K/uL (0.1-1.30); MONOCYTES % (AUTO) 4.7 % (0.0-11.0); NEUTROPHILS # (AUTO) 13.3 K/uL (1.8-8.9); NEUTROPHILS % (AUTO) 79.5 % (38.5-71.5); PLATELET COUNT (AUTO) 299 K/uL (150-450); RED BLOOD CELL COUNT(AUTO) 4.49 MIL/uL (4.70-6.10); RED CELL DISTRIBUTION WIDTH 13.1 % (11.5-14.5); WHITE BLOOD COUNT (AUTO) 16.8 K/uL (4.0-11.2)
[2016-09-17 20:47] LABS: CREATININE 0.8 mg/dL (0.6-1.3); POTASSIUM 4.5 mmol/L (3.5-5.1)
[2016-09-17 20:52] LABS: ALBUMIN 3.4 g/dL (3.4-5.0); BILIRUBIN,DIRECT 0.1 mg/dL (0.0-0.2); BILIRUBIN,TOTAL 0.4 mg/dL (0.2-1.0); MAGNESIUM 1.9 mg/dL (1.8-2.4); PHOSPHOROUS 4.3 mg/dL (2.5-4.9); TOTAL PROTEIN, SERUM 6.9 g/dL (6.4-8.2)
[2016-09-17] MEDS ORDERED: GABAPENTIN 300 MG CAPSULE PO SCH (21:00)
[2016-09-17] MEDS: PRAZOSIN HCL 1 MG CAPSULE PO SCH (22:39)
[2016-09-17] MEDS: QUETIAPINE FUMARATE 200 MG TABLET PO SCH (22:45)
--- NOTE | 2016-09-17 22:53 | NUR ---
PRN ZOFRAN IV Pt complains of nausea with no episode of vomiting. Pt observed to be dry heaving. PRN Zofran IV administered as ordered. Will continue to monitor effectiveness of medication.
--- NOTE | 2016-09-17 23:25 | NUR ---
PRN ZOFRAN IV REASSESSMENT PRN Zofran effective. Pt reports relief from nausea. Pt noted to be lying in bed, drowsy and ready to sleep. Breathing is even and unlabored, safety measures in place. Will continue to monitor.
[2016-09-18] VITALS: BP 126/82
--- NOTE | 2016-09-18 | NUR ---
COWS/CIWA DEFERRED COWS/CIWA deferred d/t order states Q4H while awake. Pt lying in bed with eyes closed noted to be asleep. Respirations 16, breathing is even and unlabored, safety measures in place. Will continue to monitor.
[2016-09-18] MEDS: IV D5 1/2 NS 1000 ML 1,000 ML IV PRN ×2 (00:39→06:38)
[2016-09-18 04:00] VITALS: BP 122/80
--- NOTE | 2016-09-18 04:00 | NUR ---
COWS/CIWA DEFERRED 0400 COWS/CIWA deferred d/t order states Q4H while awake. Pt lying in bed with eyes closed noted to be asleep. Respirations 16, breathing is even and unlabored, safety measures in place. Will continue to monitor.
[2016-09-18 05:22] LABS: HCV AB <0.1 s/co ratio (0.0-0.9); HEPATITIS B CORE AB, IgM Negative (Negative); HEPATITIS B SURFACE AG Negative (Negative)
--- NOTE | 2016-09-18 07:04 | NUR ---
END OF SHIFT Pt remained stable, had episode of nausea without vomiting. He received PRN Zofran IV 4 mg at 2253 which was effective. Pt with 22 gauge IV to left forearm. No s/s of infiltration noted. Patent and flowing well. D5 1/2 NS running at 125 mL/hr. He slept a total of 6 hrs, Intake: 1000mL via IV fluids, Void: 200mL BM: 0, COWS:5, CIWA 4 at 2234. Pt is alert and oriented x4, breathing is even and unlabored, respirations 16. Pt safe with bed locked in lowest position, side rails up x2 and call light within reach. Endorsed to AM shift.
[2016-09-18 07:14] LABS: ALANINE AMINOTRANSFERASE 22 U/L (16-63); ALBUMIN 3.1 g/dL (3.4-5.0); ALKALINE PHOSPHATASE 52 U/L (50-136); ASPARTATE AMINOTRANSFERASE 14 U/L (15-37); BILIRUBIN,DIRECT 0.1 mg/dL (0.0-0.2); BILIRUBIN,TOTAL 0.4 mg/dL (0.2-1.0); CALCIUM 8.7 mg/dL (8.5-10.1); CARBON DIOXIDE 31 mmol/L (21-32); CHLORIDE 101 mmol/L (98-107); CREATININE 0.6 mg/dL (0.6-1.3); GFR > 130 mL/min (>60); GLUCOSE 125 mg/dL (74-106); PHOSPHOROUS 4.4 mg/dL (2.5-4.9); POTASSIUM 4.3 mmol/L (3.5-5.1); SODIUM SERUM 138 mmol/L (136-145); TOTAL PROTEIN, SERUM 6.1 g/dL (6.4-8.2); UREA NITROGEN, BLOOD 9 mg/dL (7-18)
[2016-09-18 07:23] LABS: BASOPHILS # (AUTO) 0.1 K/uL (0.0-0.2); BASOPHILS % (AUTO) 1.2 % (0.0-2.0); EOSINOPHILS # (AUTO) 0.6 K/uL (0.0-0.7); EOSINOPHILS % (AUTO) 6.5 % (0.0-7.0); HEMATOCRIT 36.7 % (40.0-50.0); HEMOGLOBIN 12.6 g/dL (14.0-18.0); LYMPHOCYTES % (AUTO) 23.1 % (20.5-51.5); MEAN CORPUSCULAR HEMOGLOBIN 31.6 uug (27.0-31.0); MEAN CORPUSCULAR HGB CONC 35 g/dL (32.0-37.0); MEAN CORPUSCULAR VOLUME 91.6 fL (82.0-92.0); MONOCYTES # (AUTO) 0.7 K/uL (0.1-1.30); MONOCYTES % (AUTO) 7.9 % (0.0-11.0); NEUTROPHILS # (AUTO) 5.2 K/uL (1.8-8.9); NEUTROPHILS % (AUTO) 61.3 % (38.5-71.5); PLATELET COUNT (AUTO) 285 K/uL (150-450); RED CELL DISTRIBUTION WIDTH 13.3 % (11.5-14.5); WHITE BLOOD COUNT (AUTO) 8.6 K/uL (4.0-11.2)
[2016-09-18 08:00] VITALS: BP 148/73
--- NOTE | 2016-09-18 08:00 | NUR ---
START OF SHIFT Pt 35 y/o male admitted for opioid benzo etoh dependence. Pt received in room on bed awake. Pt alert and oriented to name and place. PErrla. skin warm and moist to touch. Respirations even and unlabored. Bilateral hand tremors noted. It was reported that pt slept for 6 hours last night. Peripheral IV 22g on left hand intact and in place, with no redness or infiltration noted, and is infusing D5 1/2 @ 125mL/hr and is tolerating well. Pt is on a 5 day valium and 5 day subutex taper. Bed on lowest position with side rails x2 up for safety. Call light within reach. No distress noted at this time.
--- NOTE | 2016-09-18 08:08 | NUR ---
1:1 Pt observed in room with unsteady gait. Pt observed almost tangling self with IV line and catheter. Pt also observed catching self by holding onto bed rails while standing by bed. Pt alert and oriented to name and place. Dr. Rowe made aware. Pt placed on 1:1 for safety.
[2016-09-18] MEDS: FOLIC ACID 1 MG TABLET PO SCH (09:36)
[2016-09-18] MEDS: DIVALPROEX 500 MG TABLET.DR PO SCH (09:36)
[2016-09-18] MEDS: BUPRENORPHINE HCL 2 MG TAB.SUBL SL SCH ×3 (09:37→20:46)
[2016-09-18] MEDS: MULTIVITAMINS,THERAPEUTIC TABLET PO SCH (09:37)
[2016-09-18] MEDS: DIAZEPAM 5 MG TABLET PO SCH ×2 (09:37→20:46)
[2016-09-18] MEDS: BACLOFEN 20 MG TABLET PO SCH ×3 (09:37→20:44)
[2016-09-18] MEDS: DICYCLOMINE HCL 20 MG TABLET PO SCH ×3 (09:37→20:43)
[2016-09-18] MEDS: GABAPENTIN 300 MG CAPSULE PO SCH ×3 (09:37→20:45)
[2016-09-18] MEDS: THIAMINE HCL 100 MG TABLET PO SCH (09:37)
[2016-09-18] MEDS: LIDOCAINE 5% PATCH TD SCH (09:38)
[2016-09-18] MEDS: HYDROCORTISONE 1% CREAM 30 GM TUBE TP SCH ×2 (09:38→17:47)
[2016-09-18] MEDS: PANTOPRAZOLE SODIUM 40 MG VIAL IV SCH (09:38)
--- NOTE | 2016-09-18 11:20 | NUR ---
F/C DC'd Pt was see by Dr. Rowe with new orders to DC kimble , noted and carried out. 400mL of clear yellow urine noted in drainage bag. Will monitor to see if pt is able to urinate. Pt tolerated DC of kimble well. No distress noted.
[2016-09-18 12:00] VITALS: BP 130/80
[2016-09-18] MEDS ORDERED: PROCHLORPERAZINE EDISYLATE 10 MG/2 ML VIAL IM PRN (14:30)
--- NOTE | 2016-09-18 15:00 | NUR ---
NSG ENTRY Bladder scan completed with 700mL showing in residual. Dr. Rowe aware with new orders to insert indwelling cath, noted and carried. Pt tolerated indwelling cath well. Pt stated," I feel relieved!". Drainage bag was changed to leg bag per pt preference.
[2016-09-18 16:00] VITALS: BP 122/84
[2016-09-18 16:00] LABS: *BILIRUBIN,URIN NEGATIVE (NEGATIVE); *BLOOD, URINE Trace-lysed (NEGATIVE); *CLARITY,URINE CLEAR (CLEAR); *COLOR,URINE YELLOW (YELLOW); *KETONES,URINE NEGATIVE (NEGATIVE); *PROTEIN,URINE NEGATIVE (NEGATIVE); *UROBILINOGEN,URINE 0.2 E.U./dl (NORMAL); LEUKOCYTE ESTERASE ,URINE 1+ (NEGATIVE); NITRITE, URINE NEGATIVE (NEGATIVE); UGLUCOSE NEGATIVE (NEGATIVE)
[2016-09-18 16:47] LABS: SQUAMOUS EPITHELIAL CELL,UR FEW /HPF (NONE SEEN)
[2016-09-18] MEDS: IBUPROFEN 600 MG TABLET PO PRN (17:40)
[2016-09-18] MEDS: HYDROXYZINE PAMOATE 25 MG CAPSULE PO PRN (17:40)
--- NOTE | 2016-09-18 17:40 | NUR ---
PRN Pt anxious, hyperverbal, fidgety in bed. Vistaril po prn per MD given and tolerated well.
--- NOTE | 2016-09-18 17:41 | NUR ---
PRN Pt with c/o lower back ache 12/17. Motrin po prn per MD order given and tolerated well.
--- NOTE | 2016-09-18 17:41 | NUR ---
PRN EVAL Pt states pain level of lower back /10.
--- NOTE | 2016-09-18 18:41 | NUR ---
RITESH LOUISE Pt observed in room talking with sitter. No distress noted at this time.
--- NOTE | 2016-09-18 18:44 | NUR ---
END OF SHIFT Pt 35 y/o male admitted for opioid benzo etoh dependence. Pt alert and oriented to name and place. Perrla. skin warm and moist to touch. Respirations even and unlabored. Bilateral hand tremors noted. Peripheral IV 22g on left hand intact and in place, with no redness or infiltration noted, and is infusing D5 1/2 @ 125mL/hr and is tolerating well. Pt with 1:1 sitter for unsteady gait and to monitor for safety. pt with F/C indwelling , in place, and patent and is draining by gravity to leg bag. Pt is on a 5 day valium and 5 day subutex taper. Bed on lowest position with side rails x2 up for safety. Call light within reach. No distress noted at this time.
--- NOTE | 2016-09-18 19:30 | NUR ---
START OF SHIFT-- Pt 35 y/o male admitted for opioid /benzo /etoh dependence. Pt is A/O X 4. skin warm and moist to touch. No c/o N/V/D noted. 22g IV on left hand intact and in place, with no redness or infiltration noted.Infusion stopped by day shift nurse per MD order.Pt is on 1:1 close obsevation with sitter for unsteady gait to monitor for safety. Pt with indwelling kimble catheter in place, patent and is draining by gravity to leg bag. Pt continues to remain on a 5 day valium and 5 day subutex taper. No A/R noted.Bed in lowest position with side rails x2 up for safety. Call light within reach. Will continue to monitor.
[2016-09-18 20:00] VITALS: BP 126/71
[2016-09-18] MEDS: DIVALPROEX 250 MG TABLET.DR PO SCH (20:43)
[2016-09-18] MEDS: PRAZOSIN HCL 1 MG CAPSULE PO SCH (20:45)
[2016-09-18] MEDS: QUETIAPINE FUMARATE 200 MG TABLET PO SCH (20:46)
[2016-09-18] MEDS ORDERED: DIVALPROEX 500 MG TABLET.DR PO SCH (21:00)
[2016-09-19] VITALS: BP 101/62
--- NOTE | 2016-09-19 | NUR ---
COWS/CIWA deferred. Pt lying in bed with eyes closed noted to be asleep. Per orders,COWS/CIWA to be done while Pt is awake. Respirations 16, breathing is even and nonlabored, safety measures in place.Sitter at bedside to ensure safety. Will continue to monitor.
[2016-09-19 04:00] VITALS: BP 107/63
--- NOTE | 2016-09-19 06:45 | NUR ---
END OF SHIFT--- Pt 35 y/o male admitted for opioid /benzo /etoh dependence. Pt is A/O X 4. skin warm and moist to touch. No c/o N/V/D noted. 22g IV on left hand intact and in place, with no redness or infiltration noted.Infusion stopped by day shift nurse per MD order.Pt is on 1:1 close obsevation with sitter for unsteady gait to monitor for safety. Pt with indwelling Bai catheter in place, patent and is draining by gravity to leg bag. Pt continues to remain on a 5 day valium and 5 day subutex taper. No A/R noted.Pt slept all night without any problem,No PRN meds given last night.Pt slept 10 hrs; fluid intake was 1035 mls ; leg bag drained out with 1000 mls clear yellow urine. Bed is locked in lowest position,side rails up x2 up for safety.Sitter at bed side;to monitor for safety due to unsteady gait.Call light within reach. Will continue to monitor.
[2016-09-19 07:00] LABS: BASOPHILS # (AUTO) 0.1 K/uL (0.0-0.2); EOSINOPHILS # (AUTO) 0.8 K/uL (0.0-0.7); EOSINOPHILS % (AUTO) 10.6 % (0.0-7.0); HEMATOCRIT 38.5 % (40.0-50.0); HEMOGLOBIN 12.9 g/dL (14.0-18.0); LYMPHOCYTES # (AUTO) 2.2 K/uL (0.8-4.8); LYMPHOCYTES % (AUTO) 29.2 % (20.5-51.5); MEAN CORPUSCULAR HEMOGLOBIN 30.7 uug (27.0-31.0); MEAN CORPUSCULAR HGB CONC 33 g/dL (32.0-37.0); MONOCYTES # (AUTO) 0.7 K/uL (0.1-1.30); MONOCYTES % (AUTO) 9.1 % (0.0-11.0); NEUTROPHILS # (AUTO) 3.8 K/uL (1.8-8.9); NEUTROPHILS % (AUTO) 50.1 % (38.5-71.5); PLATELET COUNT (AUTO) 278 K/uL (150-450); RED BLOOD CELL COUNT(AUTO) 4.19 MIL/uL (4.70-6.10); RED CELL DISTRIBUTION WIDTH 13.5 % (11.5-14.5); WHITE BLOOD COUNT (AUTO) 7.6 K/uL (4.0-11.2)
[2016-09-19 08:00] VITALS: BP 121/80
--- NOTE | 2016-09-19 08:00 | NUR ---
FC drain 700mL clear urine drained from bag.
--- NOTE | 2016-09-19 08:00 | NUR ---
START OF SHIFT Pt 35 y/o male admitted for opioid benzo etoh dependence. Pt received in room on bed with eyes closed resting, but easily arousable to name. Pt alert and oriented to name. Perrla. skin warm and moist to touch. Respirations even and unlabored. Bilateral hand tremors noted. It was reported that pt slept for 10 hours last night. Peripheral IV 22g on left hand intact and in place, with no redness noted. Pt with sitter 1:1 for safety. Pt is on a 5 day valium and 5 day subutex taper. Bed on lowest position with side rails x2 up for safety. Call light within reach. No distress noted at this time.
[2016-09-19 08:09] LABS: CALCIUM 8.6 mg/dL (8.5-10.1); CARBON DIOXIDE 31 mmol/L (21-32); CHLORIDE 109 mmol/L (98-107); CREATININE 0.6 mg/dL (0.6-1.3); GFR > 130 mL/min (>60); GLUCOSE 106 mg/dL (74-106); MAGNESIUM 1.9 mg/dL (1.8-2.4); PHOSPHOROUS 3.6 mg/dL (2.5-4.9); POTASSIUM 4.2 mmol/L (3.5-5.1); SODIUM SERUM 145 mmol/L (136-145); UREA NITROGEN, BLOOD 6 mg/dL (7-18)
[2016-09-19] MEDS ORDERED: BUPRENORPHINE HCL 2 MG TAB.SUBL SL SCH (09:00)
[2016-09-19] MEDS ORDERED: DIAZEPAM 5 MG TABLET PO SCH (09:00)
--- NOTE | 2016-09-19 09:00 | NUR ---
HELD DOSE Pt in bed with eyes closed, requires some stimulation to be arousable. Dr. Rowe made aware and Subutex dose and Valium dose was held. Pt remains with sitter to monitor for safety.
[2016-09-19] MEDS: FOLIC ACID 1 MG TABLET PO SCH (09:53)
[2016-09-19] MEDS: PANTOPRAZOLE SODIUM 40 MG TABLET.DR PO SCH (09:53)
[2016-09-19] MEDS: MULTIVITAMINS,THERAPEUTIC TABLET PO SCH (09:53)
[2016-09-19] MEDS: THIAMINE HCL 100 MG TABLET PO SCH (09:53)
[2016-09-19] MEDS: DICYCLOMINE HCL 20 MG TABLET PO SCH ×3 (09:53→21:19)
[2016-09-19] MEDS: DIVALPROEX 250 MG TABLET.DR PO SCH ×2 (09:54→21:19)
[2016-09-19] MEDS: LIDOCAINE 5% PATCH TD SCH (09:55)
[2016-09-19] MEDS: HYDROCORTISONE 1% CREAM 30 GM TUBE TP SCH ×2 (09:55→17:00)
[2016-09-19] MEDS: BACLOFEN 20 MG TABLET PO SCH ×2 (10:03→15:00)
[2016-09-19] MEDS: GABAPENTIN 300 MG CAPSULE PO SCH ×3 (10:03→21:19)
--- NOTE | 2016-09-19 10:25 | NUR ---
NSG ENTRY Pt in room with sitter, awake. Pt showing s/s of increased confusion. Pt assisted to chair to by multiple staff. Pt keep eyes closed. Pt with episodes of tearfulness. Pt also observed crying at times. Pt could not clearly state why he was crying or the episodes of tearfulness. Pt oriented to name only. Dr. Rowe on unit and further evaluated pt, with new orders for [address] Guzman also made aware. Addendum: 09/19/16 at 1056 by YU SUERO RN Sitter 1:1 also remained with pt to monitor for safety.
--- NOTE | 2016-09-19 10:29 | NUR ---
CRISIS TEAM CONTACTED Per Dr. Rowe patient is A/O x1 with increased confusion and unable to provide for his basic personal needs. Dr. Guzman notified and ordered to contact crisis teams. Spoke with Frankie, awaiting for evaluation.
--- NOTE | 2016-09-19 10:56 | NUR ---
NSG ENTRY Dr. Guzman on unit to see pt.
[2016-09-19 12:00] VITALS: BP 115/68
--- NOTE | 2016-09-19 13:00 | NUR ---
NSG ENTRY Frankie, nuclear radiation engineer here to see pt. Frankie stated unable to evaluate because not able to stay awake long enough to be evaluated. Dr. Rowe aware with new order for CT head.
--- NOTE | 2016-09-19 15:00 | NUR ---
CT Pt went for CT head with out contrast. Dr. Rowe aware of results. Frankie, culinary artist stated he come tomorrow to evaluate pt.
[2016-09-19 16:00] VITALS: BP 132/90
--- NOTE | 2016-09-19 19:16 | NUR ---
END OF SHIFT Pt 35 y/o male admitted for opioid benzo etoh dependence. Pt alert and oriented to name only. Perrla. skin warm and moist to touch. Respirations even and unlabored. Bilateral hand tremors noted. Peripheral IV 22g on left hand intact and in place, with no redness noted. Pt in bed throughout the day. Pt was seen by Frankie , belt worker for 5150. Frankie stated, not able to eval pt because he does not stay awake long enough for eval. Frankie stated that he will come back tomorrow to eval pt. Pt with 1:1 sitter for unsteady gait and to monitor for safety. pt with F/C indwelling , in place, and patent and is draining by gravity to leg bag. Pt is on a 5 day valium and 5 day subutex taper. Bed on lowest position with side rails x2 up for safety. Call light within reach. No distress noted at this time.
--- NOTE | 2016-09-19 19:30 | NUR ---
Start of Shift Note: Patient is a 35 y/o male admitted on 09/14/16 for ETOH, Opiates & Benzo dependence. Patient with past medical history of GERD, Insomnia, Bipolar, Anxiety, Depression, Asthma, Chronic back pain, back surgery, Pancreatitis (2013), seizure d/t benzo withdrawal. Patient is on a regular diet with no known food and drug allergies. Full Code status. Patient with IV access 22 gauge on left hand in place and patent. No c/o discomfort noted. No s/s of infection. Patient with indwelling kimble catheter patent and in place draining by gravity in a urinary bag. Patient on continuous 1:1 observation for safety. Patient completed his Subutex and Valium taper. Pt has been sleeping the whole day. Psych MD and Crisis team came today but unable to evaluate patient because patient was sleeping. No PRN medications were given to patient during day shift. Patient is alert & oriented to name, place, time and situation. No shortness of breath noted. Respiration even & unlabored. Abdomen soft & non-distended. Bowel sounds active in all four quadrants. Pt complains of nausea. No episode of vomiting noted. No sweating, chills, diarrhea noted. Pt complains of 2/10 headache. Pt noted with jerking movements. Bilateral hand tremors noted. No hallucinations. Patient denies SI/HI. Safety precautions are in place. Bed locked in lowest position. Both side rails up. Call light within pt's reach. Will continue to monitor patient.
[2016-09-19 20:00] VITALS: BP 128/90
[2016-09-19] MEDS: KETOROLAC TROMETHAMINE 30 MG INJ IM PRN (21:08)
[2016-09-19] MEDS: ONDANSETRON 4 MG/2 ML VIAL IM PRN (21:08)
--- NOTE | 2016-09-19 21:12 | NUR ---
PRN Zofran and One time Toradol Pt c/o generalized pain pain 8/. He is moaning, restless, and frequently shifting in bed. He reports nausea. Dr. Rowe ordered one time Toradol. PRN Zofran IM and one time Toradol IM administered.
[2016-09-19] MEDS ORDERED: KETOROLAC TROMETHAMINE 30 MG INJ ONE (21:13)
[2016-09-19] MEDS: QUETIAPINE FUMARATE 200 MG TABLET PO SCH (21:17)
[2016-09-19] MEDS: PRAZOSIN HCL 1 MG CAPSULE PO SCH (21:18)
--- NOTE | 2016-09-19 22:12 | NUR ---
PRN Reassessment Patient verbalized improved nausea and relief from body aches. PRN medication effective. Patient lying in bed and appears more comfortable. No facial grimacing noted. Will continue to monitor.
[2016-09-20 04:00] VITALS: BP 95/68
[2016-09-20] MEDS: PANTOPRAZOLE SODIUM 40 MG TABLET.DR PO SCH (06:54)
--- NOTE | 2016-09-20 07:08 | NUR ---
END OF SHIFT NOTE: Patient is a 35 y/o male admitted on 09/14/16 for ETOH, Opiates & Benzo dependence. Patient with past medical history of GERD, Insomnia, Bipolar, Anxiety, Depression, Asthma, Chronic back pain, back surgery, Pancreatitis (2013), seizure d/t benzo withdrawal. Patient is on a regular diet with no known food and drug allergies. Full Code status. Patient with IV access 22 gauge on left wrist in place and patent. No c/o discomfort noted. No s/s of infection. Patient with indwelling kimble catheter patent and in place draining by gravity in a urinary bag. Patient on continuous 1:1 observation for safety. Patient completed his Subutex and Valium taper. Last COWS is 5 CIWA 4 noted. Pt was given PRN Zofran IM and Toradol IM for nausea and 8/10 body aches and were effective. Pt's vitams remains WNL. Pt slept for a total of 8 hours. Pt urine output is 800ml. No bowel movement noted. Pt consumed 500ml of fluids. Pt remained compliant with treatment plan. All needs attended & met. Safety precautions are in place. Will endorse pt to day shift nurse.
--- NOTE | 2016-09-20 07:56 | NUR ---
START OF SHIFT Pt 35 y/o male admitted for opioid benzo etoh dependence. Pt received in room on bed watching television. Pt alert and oriented to name and partially place. Pt also remembered my name. Ra. Skin warm and slightly moist to touch. Respirations even and unlabored. Bilateral hand tremors noted. It was reported that pt slept for 8 hours last night. Peripheral IV 22g on left hand intact and in place, with no redness noted. Pt with sitter 1:1 for safety. Bed on lowest position with side rails x2 up for safety. Call light within reach. No distress noted at this time. Addendum: 09/20/16 at 0842 by YU SUERO RN correction Pt alert and oriented to name and partially day and time.
[2016-09-20 08:00] VITALS: BP 116/63
[2016-09-20] MEDS: DIVALPROEX 250 MG TABLET.DR PO SCH ×2 (09:55→20:42)
[2016-09-20] MEDS: LIDOCAINE 5% PATCH TD SCH (09:55)
[2016-09-20] MEDS: FOLIC ACID 1 MG TABLET PO SCH (09:55)
[2016-09-20] MEDS: HYDROCORTISONE 1% CREAM 30 GM TUBE TP SCH ×2 (09:55→17:43)
[2016-09-20] MEDS: GABAPENTIN 300 MG CAPSULE PO SCH ×3 (09:55→20:41)
[2016-09-20] MEDS: DICYCLOMINE HCL 20 MG TABLET PO SCH (09:55)
[2016-09-20] MEDS: THIAMINE HCL 100 MG TABLET PO SCH (09:55)
[2016-09-20] MEDS: MULTIVITAMINS,THERAPEUTIC TABLET PO SCH (09:55)
[2016-09-20] MEDS: KETOROLAC TROMETHAMINE 30 MG INJ IM PRN (10:22)
--- NOTE | 2016-09-20 10:22 | NUR ---
PRN Pt with c/o generalized body pain, aching 02/17. Pt observed with episodes of crying and moaning. toradol IM prn per MD order given and tolerated well.
--- NOTE | 2016-09-20 11:22 | NUR ---
PRN ASPEN Pt observed in room on bed with eyes closed resting, but easily arousable to name. Bed on lowest position with side rails x2 up for safety. call light within reach. Pt with sitter 1:1 for safety.
[2016-09-20 12:00] VITALS: BP 110/68
[2016-09-20] MEDS: ONDANSETRON 4 MG/2 ML VIAL IM PRN (12:38)
[2016-09-20] MEDS ORDERED: DICYCLOMINE HCL 20 MG TABLET PO PRN (13:00)
--- NOTE | 2016-09-20 13:43 | NUR ---
PRN Pt with vomit episode. Compazine IM prn per MD order given and tolerated well.
[2016-09-20] MEDS: IV D5 1/2 NS 1000 ML 1,000 ML IV SCH (14:15)
[2016-09-20 16:00] VITALS: BP 131/84
[2016-09-20] MEDS ORDERED: MAGNESIUM CITRATE 296 ML BOTTLE PO PRN (16:00)
[2016-09-20] MEDS ORDERED: BUPRENORPHINE HCL 2 MG TAB.SUBL SL ONE (16:00)
[2016-09-20] MEDS ORDERED: DICYCLOMINE HCL 20 MG/2 ML AMPUL IM ONE (16:00)
--- NOTE | 2016-09-20 16:00 | NUR ---
5150 ASPEN David , chemical instrumentation officer , here to see pt for evaluation of 5150. Frankie stated pt does not meet criteria for 5150. Dr. Rowe made aware. Dr. Guzman made aware. Dr. Rowe on unit and spoke with pt, with new orders for kimble to be dc'd, subutex 2 mg po x1 dose, mag citrate oral x1 , docusate sodium po x1 dose, and bentyl IM x1 per MD order , noted and carried out.
[2016-09-20] MEDS: DOCUSATE SODIUM 250 MG CAPSULE PO SCH (16:15)
--- NOTE | 2016-09-20 16:38 | NUR ---
FC dc'd FC dc'd. Pt tolerated well. Will monitor if pt is able to urinate.
--- NOTE | 2016-09-20 16:45 | NUR ---
SUBUTEX X1 EVAL Pt observed sitting on bed watching television. Cows=4.
[2016-09-20] MEDS: HALOPERIDOL 5 MG TABLET PO SCH (17:42)
--- NOTE | 2016-09-20 18:27 | NUR ---
END OF SHIFT Pt 35 y/o male admitted for opioid benzo etoh dependence. Pt alert and oriented to name only. Perrla. skin warm and moist to touch. Respirations even and unlabored. Bilateral hand tremors noted. Peripheral IV 22g on left hand intact and in place, with no redness noted and is infusing D5 1/2 NS @ 125mL/hr. Pt mostly in bed throughout the day, but did go to the patio a few times today. Pt was seen by Frankie , airport engineer for 5150. Frankie stated, does not meet criteria for 5150. Pt with 1:1 sitter for unsteady gait and to monitor for safety. Pt had kimble DC'd, and still continuing to monitor if pt is able void. Bed on lowest position with side rails x2 up for safety. Call light within reach. No distress noted at this time.
--- NOTE | 2016-09-20 19:30 | NUR ---
Start of Shift Note: Patient is a 35 y/o male admitted on 09/14/16 for ETOH, Opiates & Benzo dependence. Patient with past medical history of GERD, Insomnia, Bipolar, Anxiety, Depression, Asthma, Chronic back pain, back surgery, Pancreatitis (2013), seizure d/t benzo withdrawal. Patient is on a regular diet with no known food and drug allergies. Full Code status. Patient with IV access 22 gauge on left forearm in place and patent. No c/o discomfort noted. No s/s of infection. Bai Catheter DC'd as ordered. Will continue to monitor for Urine output. Patient on continuous 1:1 observation for safety. Patient completed his Subutex and Valium taper but received a one time dose of Subutex for withdrawals during day shift. Last COWS 5 CIWA 6. Pt was given Citrate of Magnesium for constipation. Will continue to monitor for bowel movement. Patient is alert & oriented to name, place, time and situation. No shortness of breath noted. Respiration even & unlabored. Abdomen soft & non-distended. Bowel sounds active in all four quadrants. Abdomen soft & non-distended. Pt complains of nausea, stomach cramps, 7/10 body aches, mild headache, sweating and chills. Bilateral hand tremors noted. Pt denies hallucinations. Safety precautions are in place. Bed locked in lowest position. Both side rails up. Call light within pts reach. Will continue to monitor patient. Addendum: 09/20/16 at 2306 by THANIA LEAHY RN Abdomen noted to be distended. KUB done in AM. Still waiting for result.
[2016-09-20] MEDS ORDERED: HYDROXYZINE PAMOATE 25 MG CAPSULE PO PRN (20:00)
[2016-09-20] MEDS: ONDANSETRON 4 MG/2 ML VIAL IV PRN (20:05)
--- NOTE | 2016-09-20 20:05 | NUR ---
PRN ZOFRAN Patient vomited x1. Large amount of stomach contents. PRN Zofran 4mg IVP given as ordered. On continuous D5 1/2 NS @ 125 cc/hr for hydration. Will monitor for effectiveness of medication.
--- NOTE | 2016-09-20 20:35 | NUR ---
PRN Reassessment Pt verbalized improved nausea. No episode of vomiting noted after administration of medication. Pt stated that he felt a little better after meds. Will continue to monitor patient.
[2016-09-20] MEDS: IBUPROFEN 600 MG TABLET PO PRN (20:41)
[2016-09-20] MEDS: PRAZOSIN HCL 1 MG CAPSULE PO SCH (20:41)
--- NOTE | 2016-09-20 20:41 | NUR ---
PRN Motrin Patient c/o 7/10 body aches and mild headache. PRN Motrin given as ordered. Will continue to monitor patrient.
[2016-09-20 21:16] VITALS: BP 116/84
--- NOTE | 2016-09-20 21:41 | NUR ---
PRN Reassessment Patient verbalized relief from body aches and headache. PRN medication effective. Will continue to monitor patient.
--- NOTE | 2016-09-20 21:45 | NUR ---
MD Communication Patient c/o of bladder pain. No Urine output still noted. MD notified with orders to scanl bladder and insert kimble cathether if PVR>200. Bladder was scanned and noted with PVR of 438ml. MD with new orders to start pt on Flomax 0.4mg daily. Orders noted and carried out.
--- NOTE | 2016-09-20 22:00 | NUR ---
Bai Catheter Insertion Bai Catheter Fr 16 inserted using sterile technique and attached to leg bag with no problems. No bleeding noted upon insertion. Bai catheter draining to clear yellow urine by gravity.
[2016-09-20] MEDS ORDERED: TAMSULOSIN HCL 0.4 MG CAP.SR.24H ONE (23:24)
[2016-09-20] MEDS: TAMSULOSIN HCL 0.4 MG CAP.SR.24H PO SCH (23:44)
[2016-09-21] VITALS: BP 116/84
[2016-09-21] MEDS: IV D5 1/2 NS 1000 ML 1,000 ML IV SCH ×3 (01:23→14:00)
[2016-09-21] MEDS: ONDANSETRON 4 MG/2 ML VIAL IV PRN (03:24)
--- NOTE | 2016-09-21 03:24 | NUR ---
PRN ZOFRAN Patient vomited x1 mostly fluids and some stomach contents. PRN Zofran 4mg IVP given as ordered. On continuous D5 1/2 NS @ 125 cc/hr for hydration. Will monitor for effectiveness of medication.
[2016-09-21 03:40] VITALS: BP 129/80
--- NOTE | 2016-09-21 03:40 | NUR ---
O2 Therapy Hooked pt to O2 via nasal cannula at 2lpm as ordered d/t decreased in O2Sat to 82% on RA. Vitals WNL. Will continue to monitor patient.
[2016-09-21] MEDS: PANTOPRAZOLE SODIUM 40 MG TABLET.DR PO SCH (06:36)
--- NOTE | 2016-09-21 07:38 | NUR ---
END OF SHIFT NOTE: Patient is a 35 y/o male admitted on 09/14/16 for ETOH, Opiates & Benzo dependence. Patient with past medical history of GERD, Insomnia, Bipolar, Anxiety, Depression, Asthma, Chronic back pain, back surgery, Pancreatitis (2013), seizure d/t benzo withdrawal. Patient is on a regular diet with no known food and drug allergies. Full Code status. Patient with IV access 22 gauge on left forearm in place and patent with D51/2 NS running at 125 cc/hr. No c/o discomfort noted. No s/s of infection. Patient on continuous 1:1 observation for safety. Bai Catheter was reinserted last night as ordered d/t urinary retention. Pt was started on Flomax 0.4mg daily, first dose was given at 2344. Patient has 2 episode of vomiting during my shift and was given PRN Zofran IVP with help. Pt was also given PRN Motrin for body aches. Pt has an episode of desaturation and was hooked on Oxygen at 2lpm to maintain O2Sats above 92%. Pt remained stable and vitals WNL. Pt was able to sleep for 4 hours. Pt consumed 1446ml of fluids. Voided 2200ml of fluids with no bowel movement noted. All needs attended & met. Safety precautions are in place. Will endorse pt to day shift nurse.
--- NOTE | 2016-09-21 07:45 | NUR ---
START OF SHIFT Rcvd client in room, he presents with irritable mood, flat affect, he reports anxiety, fatigue, heartburn, leg restlessness, and chills, he denies confusion, headache, nausea, vomiting or diarrhea. he is on IV fluid therapy running D5% 1/2NS @ 125mL/hr, peripheral IV on Left F/A 22G dressing intact, Client continues to require 24/7 care home for assistance with mobility, meals, and all ADLs. Encouraged increased fluids as tolerated. Encouraged group therapy attendance. Per night supervisor nurse, client is a 35 year old male admitted for withdrawal from opioids and alcohol. He completed 5 day Valium taper and 5 day Subutex taper, tolerated well. He had PRN Zofran x 2 for emesis, noted effective. He reports PMH, Chronic low back pain, Bipolar disord, Anxiety disorder, rule out posttraumatic stress disorder, Atopic dermatitis, Asthma, mild-intermittent, Gastroesophageal reflux disease, Opioid use disorder, Alcohol use disorder, Sedative-hypnotic use disorder, in sustained remission, Chronic tobacco use, withdrawal-induced seizure (May 2016). Surgical history, Unspecified hernia repair, Lumbar spine discectomy. He is full code, regular diet, NKA. Client is on seizure and fall precautions. Side rails up/padded x 2, call light within reach, bed locked in lowest positions. Will continue with plan of care
[2016-09-21 08:00] VITALS: BP 142/86
[2016-09-21] MEDS: DOCUSATE SODIUM 250 MG CAPSULE PO SCH (09:49)
[2016-09-21] MEDS: FOLIC ACID 1 MG TABLET PO SCH (09:50)
[2016-09-21] MEDS: HALOPERIDOL 5 MG TABLET PO SCH ×2 (09:50→16:52)
[2016-09-21] MEDS: DIVALPROEX 250 MG TABLET.DR PO SCH ×2 (09:50→21:55)
[2016-09-21] MEDS: GABAPENTIN 300 MG CAPSULE PO SCH ×3 (09:50→21:55)
[2016-09-21] MEDS: TAMSULOSIN HCL 0.4 MG CAP.SR.24H PO SCH (09:50)
[2016-09-21] MEDS: HYDROCORTISONE 1% CREAM 30 GM TUBE TP SCH ×2 (09:51→16:53)
[2016-09-21] MEDS: LIDOCAINE 5% PATCH TD SCH (09:51)
[2016-09-21] MEDS: THIAMINE HCL 100 MG TABLET PO SCH (09:51)
[2016-09-21] MEDS: MULTIVITAMINS,THERAPEUTIC TABLET PO SCH (09:51)
[2016-09-21] MEDS ORDERED: BISACODYL 10 MG SUPP.RECT RC ONE (11:00)
[2016-09-21] MEDS ORDERED: MAGNESIUM CITRATE 296 ML BOTTLE PO ONE (11:00)
[2016-09-21] MEDS: NICOTINE 7 MG/24HR PATCH TD SCH (11:19)
[2016-09-21] MEDS ORDERED: FLEET ENEMA 133 ML BOTTLE RC ONE (11:30)
[2016-09-21 12:00] VITALS: BP 123/79
[2016-09-21] MEDS ORDERED: HALO5TAB12 PO (12:10)
[2016-09-21] MEDS ORDERED: Ibuprofen PO (12:10)
[2016-09-21] MEDS ORDERED: DIVA250T4 PO (12:10)
[2016-09-21] MEDS ORDERED: HYDR-3895 PO (12:10)
[2016-09-21] MEDS ORDERED: DICY20TA28 PO (12:10)
[2016-09-21] MEDS ORDERED: Gabapentin PO (12:10)
--- NOTE | 2016-09-21 12:45 | NUR ---
New Peripheral IV started, old site was past due. Attempt x 3, not on Left forearm, client tolerated well. 22G
[2016-09-21 16:00] VITALS: BP 128/80
--- NOTE | 2016-09-21 19:02 | NUR ---
END OF SHIFT Client completed 5 day Valium taper and 5 day Subutex taper. he is in room, he presents with irritable mood, flat affect, he denies confusion, ZELAYA, N/V/D. He is on IV fluid therapy running D5% 1/2NS @ 125mL/hr for hydration, he consumes 25% of meals. Peripheral IV on Left F/A 22G dressing intact. He has a kimble intact/patent due to urinary retention. Adequate output void 1300mL, stool x 2. Client continues on 1:1 assistance with mobility, meals, and all ADLs. He was not compliant with group therapy. He reports hx of withdrawal-induced seizure (May 2016). He is full code, regular diet, NKA. Client is on seizure and fall precautions. Side rails up/padded x 2, call light within reach, bed locked in lowest positions. Will continue with plan of care
--- NOTE | 2016-09-21 19:12 | NUR ---
Start of shift note Received report from day shift nurse. Pt is a 35 yo male, A+Ox4, presenting to [facility] for ETOH/Benzo/Opiate/Cocaine/Marijuana dependence. Pt has NKA, is Full Code status, and on Regular diet. Pt is on Fall and Seizure precautions. Pt has HX of GERD, Insomnia, Bipolar, Anxiety, Depression, Asthma, Chronic Back Pain, Back SX, Pancreatitis and Seizure. Pt is 1:1 sitter for observation. Pt is on IV hydration, tolerated well. Pt is on F/C for urinary retention. Pt has completed 5 day Subutex and Valium tapers and is due for discharge tomorrow. No s/s of distress noted at this time. Respirations even and unlabored. Will continue to monitor.
[2016-09-21 20:06] LABS: *AMPHETAMINE, URINE NEGATIVE (NEGATIVE); *BARBITURATE, URINE NEGATIVE (NEGATIVE); *CANNABINOID, URINE POSITIVE (NEGATIVE); *COCCAINE, URINE NEGATIVE (NEGATIVE); *OPIATE, URINE NEGATIVE (NEGATIVE); *PHENCYCLIDINE SCREEN,URINE NEGATIVE (NEGATIVE)
[2016-09-21 20:18] VITALS: BP 113/64
[2016-09-21] MEDS: PRAZOSIN HCL 1 MG CAPSULE PO SCH (21:55)
[2016-09-22 00:12] VITALS: BP 92/64
[2016-09-22] MEDS: IV D5 1/2 NS 1000 ML 1,000 ML IV SCH ×2 (00:22→09:20)
[2016-09-22 04:11] VITALS: BP 103/61
[2016-09-22] MEDS: PANTOPRAZOLE SODIUM 40 MG TABLET.DR PO SCH (06:47)
--- NOTE | 2016-09-22 07:00 | NUR ---
End of shift note Pt is a 35 yo male, A+Ox4, presenting to [facility] for ETOH/Benzo/Opiate/Cocaine/Marijuana dependence. Pt has NKA, is Full Code status, and on Regular diet. Pt is on Fall and Seizure precautions. Pt has HX of GERD, Insomnia, Bipolar, Anxiety, Depression, Asthma, Chronic Back Pain, Back SX, Pancreatitis and Seizure. Pt is on 1:1 sitter for observation. Pt is on IV hydration, tolerated well. Pt is on F/C for urinary retention, draining well. Pt has completed 5 day Subutex and Valium tapers and is due for discharge today. Pt slept for a total of 8 HRS. Last COWS: 3 and Last CIWA: 1 @0400. No s/s of distress noted at this time. Respirations even and unlabored. Will endorse to day shift nurse.
--- NOTE | 2016-09-22 07:45 | NUR ---
START OF SHIFT Rcvd client in room, he presents with irritable mood, flat affect, he reports anxiety, fatigue, leg restlessness, he denies confusion, headache, nausea, vomiting or diarrhea. he is on IV fluid therapy running D5% 1/2NS @ 125mL/hr, peripheral IV on Left F/A 22G dressing intact,Bai 16F intact/patent for urinary retention. Client continues to require 1:1 sitter for assistance with mobility, meals, and all ADLs. Encouraged increased fluids as tolerated. Encouraged group therapy attendance. Per shift supervisor melting nurse, client admitted for withdrawal from opioids and alcohol. He completed 5 day Valium taper and 5 day Subutex taper, tolerated well. He had an uneventful night, slept 8 hrs. He is full code, regular diet, NKA. Client is on seizure and fall precautions. Side rails up/padded x 2, call light within reach, bed locked in lowest positions. Will continue with plan of care
[2016-09-22 08:00] VITALS: BP 109/74
[2016-09-22] MEDS: NICOTINE 7 MG/24HR PATCH TD SCH (09:00)
[2016-09-22] MEDS: LIDOCAINE 5% PATCH TD SCH (09:00)
[2016-09-22] MEDS: MULTIVITAMINS,THERAPEUTIC TABLET PO SCH (09:16)
[2016-09-22] MEDS: DIVALPROEX 250 MG TABLET.DR PO SCH ×2 (09:17→20:37)
[2016-09-22] MEDS: THIAMINE HCL 100 MG TABLET PO SCH (09:17)
[2016-09-22] MEDS: TAMSULOSIN HCL 0.4 MG CAP.SR.24H PO SCH (09:17)
[2016-09-22] MEDS: GABAPENTIN 300 MG CAPSULE PO SCH ×3 (09:17→20:37)
[2016-09-22] MEDS: DOCUSATE SODIUM 250 MG CAPSULE PO SCH (09:17)
[2016-09-22] MEDS: FOLIC ACID 1 MG TABLET PO SCH (09:17)
[2016-09-22] MEDS: HALOPERIDOL 5 MG TABLET PO SCH (09:17)
[2016-09-22] MEDS: HYDROCORTISONE 1% CREAM 30 GM TUBE TP SCH ×2 (09:18→17:00)
--- NOTE | 2016-09-22 09:56 | NUR ---
New peripheral IV site 24G on left F/A x 2 attempts, last site was occluded and removed 22G.
--- NOTE | 2016-09-22 10:27 | NUR ---
D/C Bai, tolerated well, will continue to monitor for urinary retention.
[2016-09-22 12:47] VITALS: BP 118/81
--- NOTE | 2016-09-22 12:52 | NUR ---
183mL noted with bladder scan, Client does not have the urge to urinate nor discomfort. Dr. Rowe notified.
--- NOTE | 2016-09-22 14:10 | NUR ---
Per Dr. Rowe to do a bladder scan, client has not been able to void since removing kimble cath around 1010, client verbalized understanding.
--- NOTE | 2016-09-22 14:13 | NUR ---
401mL noted with bladder scan, Client does have the urge to urinate, but is unable, he verbalizes discomfort. Dr. Rowe notified.
--- NOTE | 2016-09-22 14:30 | NUR ---
Male RN tried to insert a 16F kimble cath, met resistance, client needed to be relief, straight cath 14F inserted urine 300mL returned, normal odor, zero sediments noted. Dr. Rowe notified.
[2016-09-22] MEDS: ONDANSETRON ODT 4 MG TAB.RAPDIS SL PRN (15:18)
--- NOTE | 2016-09-22 15:18 | NUR ---
PRN Zofran 4mg SL administered for nausea and 1 episode of emesis. Client just came back from smoking cigarettes.advice to get the Nicotine patch, but he refuses.
[2016-09-22 16:00] VITALS: BP 124/83
--- NOTE | 2016-09-22 16:00 | NUR ---
Per Dr. Rowe no more smoking strict room restrictions, client verbalized understanding.
--- NOTE | 2016-09-22 16:18 | NUR ---
REASSESSMENT PRN Zofran 4mg effective, he reports no more emesis and nausea.
[2016-09-22] MEDS ORDERED: NICOTINE POLACRILEX 4 MG GUM-PK OF TEN BC PRN ×2 (19:15→19:30)
--- NOTE | 2016-09-22 19:26 | NUR ---
END OF SHIFT Client completed 5 day Valium taper and 5 day Subutex taper. he is in room, he presents with irritable mood, flat affect, he stated "I want to AMA," due to room restrictions, whenever he goes to smoke he comes back with nausea and one episode of emesis. race and sports book writer talking with client at the moment. He consumes 25% of meals. He complains of urinary retention, but decline kimble until night time, one time straight cath with 300mL urine returned. Client continues on 1:1 assistance with mobility, meals, and all ADLs. He was not compliant with group therapy. He reports hx of withdrawal-induced seizure (May 2016). He is full code, regular diet, NKA. Client is on seizure and fall precautions. Side rails up/padded x 2, call light within reach, bed locked in lowest positions. Will endorsed to incoming nurse.
--- NOTE | 2016-09-22 19:30 | NUR ---
START OF SHIFT NOTE : Pt. is 35 years old man, admitted to [facility] because of opiates, benzo , cocaine, ETOH dependency. He is full code, regular diet, NKA. He presents with irritable mood, flat affect, he reports anxiety, leg restlessness, he denies confusion, headache, nausea, vomiting or diarrhea. Bai 12F new insertion for urinary retention. Client continues to require 1:1 sitter for assistance with mobility, meals, and all ADLs. Encouraged increased fluids as tolerated. Encouraged group therapy attendance. He completed 5 day Valium taper and 5 day Subutex taper, tolerated well. Client is on seizure and fall precautions. Safety measures in place : bed on lowest position with side rails x2 up for safety, call light within reach. Will continue to monitor closely and offer help.
[2016-09-22 20:00] VITALS: BP 114/76
[2016-09-22] MEDS: PRAZOSIN HCL 1 MG CAPSULE PO SCH (20:38)
[2016-09-22] MEDS ORDERED: HALOPERIDOL 5 MG TABLET PO SCH (21:00)
--- NOTE | 2016-09-23 06:47 | NUR ---
END OF SHIFT NOTE : Pt. is 35 years old man, admitted to [facility] because of opiates, benzo , cocaine, ETOH dependency. He is full code, regular diet, NKA. He presents with irritable mood, flat affect, he reports anxiety, leg restlessness, he denies confusion, headache, nausea, vomiting or diarrhea. Bai 12F new insertion for urinary retention. Client continues to require 1:1 sitter for assistance with mobility, meals, and all ADLs. Encouraged increased fluids as tolerated. Encouraged group therapy attendance. He completed 5 day Valium taper and 5 day Subutex taper, tolerated well. . LAST CIWA=2, COWS=2 at 0400 , YBLGCW=392 ml,urine [id number], slept 7 hours. Safety measures in place : bed on lowest position with side rails x2 up for safety, call light within reach. Will continue to monitor closely and offer help.
[2016-09-23] MEDS: PANTOPRAZOLE SODIUM 40 MG TABLET.DR PO SCH (06:56)
[2016-09-23 08:00] VITALS: BP 125/68
--- NOTE | 2016-09-23 08:00 | NUR ---
START OF SHIFT Rcvd client in room, he presents with irritable, anxious mood, and flat affect, he runs up and down his hands over his face, restlessness of his legs, he is disoriented place and date, he denies headache, nausea, vomiting or diarrhea. Bai 12F intact/patent for urinary retention, 200mL of clear yellow , zero sediments urine noted. Vitals are as follow T98.5, P83, RR16, BP125/68, on O2 2lpm with sats @ 95-96% his sat on RA were 88%. Charge nurse made aware and MD notified. Client continues to require 1:1 sitter for assistance with mobility, meals, and all ADLs. Encouraged increased fluids as tolerated. Encouraged group therapy attendance. Per overnight caregiver nurse, client admitted for withdrawal from opioids and alcohol. He completed 5 day Valium taper and 5 day Subutex taper, tolerated well. He had an uneventful night, slept 7 hrs. He is full code, regular diet, NKA. Client is on seizure and fall precautions. Side rails up/padded x 2, call light within reach, bed locked in lowest positions. Will continue with plan of care
[2016-09-23] MEDS: DIVALPROEX 250 MG TABLET.DR PO SCH ×2 (08:56→22:45)
[2016-09-23] MEDS: DOCUSATE SODIUM 250 MG CAPSULE PO SCH (08:56)
[2016-09-23] MEDS: THIAMINE HCL 100 MG TABLET PO SCH (08:56)
[2016-09-23] MEDS: GABAPENTIN 300 MG CAPSULE PO SCH ×3 (08:56→22:45)
[2016-09-23] MEDS: MULTIVITAMINS,THERAPEUTIC TABLET PO SCH (08:56)
[2016-09-23] MEDS: FOLIC ACID 1 MG TABLET PO SCH (08:56)
[2016-09-23] MEDS: LIDOCAINE 5% PATCH TD SCH (08:57)
[2016-09-23] MEDS: HYDROCORTISONE 1% CREAM 30 GM TUBE TP SCH ×2 (08:57→16:01)
--- NOTE | 2016-09-23 10:24 | NUR ---
MD ORDER Dr. Slaughter called and order Haldol 5mg x 1 now. Order read back to him and was confirmed. Charge nurse made aware.
[2016-09-23] MEDS ORDERED: HALOPERIDOL 5 MG TABLET PO ONE (10:30)
--- NOTE | 2016-09-23 10:47 | NUR ---
Dr. Rowe ordered CX-ray due to LLL crackles
[2016-09-23] MEDS: ONDANSETRON ODT 4 MG TAB.RAPDIS SL PRN (11:21)
--- NOTE | 2016-09-23 11:21 | NUR ---
PRN ZOFRAN Client reports nausea, no episodes of emesis, Zofran 4mf SL administered. Will continue to monitor, Sitter at bedside. Call light within reach.
[2016-09-23] MEDS: IBUPROFEN 600 MG TABLET PO PRN (11:25)
[2016-09-23] MEDS: METHOCARBAMOL 750 MG TABLET PO PRN (11:25)
--- NOTE | 2016-09-23 11:25 | NUR ---
PRN MOTRIN 600MG, ROBAXIN 750MG Client reports generalized aches and muscle pain 8/10 medications administered accordingly, tolerated well. Call light within reach. Will continue to monitor.
[2016-09-23 12:00] VITALS: BP 128/78
--- NOTE | 2016-09-23 12:21 | NUR ---
REASSESSMENT PRN ZOFRAN Client reports relief form nausea, Zofran 4mf SL effective. Call light within reach.
--- NOTE | 2016-09-23 12:25 | NUR ---
REASSESSMENT PRN MOTRIN 600MG, ROBAXIN 750MG Client reports relief from generalized aches and muscle pain 0/10. Call light within reach. Will continue to monitor.
--- NOTE | 2016-09-23 13:10 | NUR ---
Dr. Rowe notified of Client's decreased intake of PO fluid and refusing meals, Adequate output at this time. ordered Boost TID. Charge nurse made aware.
[2016-09-23] MEDS: BOOST PLUS 237 ML LIQUID (RICH CHOCOLATE) PO SCH ×2 (13:24→16:01)
--- NOTE | 2016-09-23 13:41 | NUR ---
CX-ray results: Lungs are clear. Client is on RA and saturations 95-96% at this time. Will continue to monitor.
[2016-09-23 16:30] VITALS: BP 139/90
[2016-09-23] MEDS ORDERED: HALOPERIDOL 5 MG TABLET PO PRN (17:00)
--- NOTE | 2016-09-23 19:17 | NUR ---
END OF SHIFT Client he is in room, he presents with anxious mood, flat affect. He consumes 25% of meals, Dr. Rowe ordered Boost and client is tolerating well. He complains of urinary retention, 12F intact/patent 950mL clear, yellow urine noted. Dr. Slaughter changed Haldol to PRN, see emar. Client continues on 1:1 assistance with mobility, meals, and all ADLs. He was not compliant with group therapy. He reports hx of withdrawal-induced seizure (May 2016). He is full code, regular diet, NKA. Client is on seizure and fall precautions. Side rails up/padded x 2, call light within reach, bed locked in lowest positions. Will endorsed to incoming nurse.
--- NOTE | 2016-09-23 19:20 | NUR ---
PRN ZOFRAN I.M. Pt. complains of nausea, vomited x1. PRN ZOFRAN IM given as ordered. Safety measures in place : bed on lowest position with side rails x2 up for safety, call light within reach. Will continue to monitor closely and offer help.
--- NOTE | 2016-09-23 19:30 | NUR ---
START OF SHIFT NOTE : Pt. is 35 years old man, admitted to [facility] because of opiates, benzo , cocaine, ETOH dependency. He is full code, regular diet, NKA. He presents with irritable mood, flat affect, he reports anxiety, leg restlessness, nausea, vomiting X1. PRN ZOFRAN IM given as ordered . Pt. confused, oriented to his name and place only. Client continues to require 1:1 sitter for assistance with mobility, meals, and all ADLs. Bai catheter Fr.[address], yellow urine obtained. Encouraged increased fluids as tolerated when feels better. Encouraged group therapy attendance. Client is on seizure and fall precautions. Safety measures in place : bed on lowest position with side rails x2 up for safety, call light within reach. Will continue to monitor closely and offer help.
[2016-09-23] MEDS: ONDANSETRON 4 MG/2 ML VIAL IM PRN (19:56)
[2016-09-23 20:00] VITALS: BP 129/89
--- NOTE | 2016-09-23 20:15 | NUR ---
REASSESSMENT PRN ZOFRAN Client reports relief form nausea, Zofran 4mg IM effective. Safety measures in place : bed on lowest position with side rails x2 up for safety, call light within reach. Will continue to monitor closely and offer help.
[2016-09-23 20:33] LABS: *AMPHETAMINE, URINE NEGATIVE (NEGATIVE); *BARBITURATE, URINE NEGATIVE (NEGATIVE); *CANNABINOID, URINE POSITIVE (NEGATIVE); *COCCAINE, URINE NEGATIVE (NEGATIVE); *OPIATE, URINE NEGATIVE (NEGATIVE); *PHENCYCLIDINE SCREEN,URINE NEGATIVE (NEGATIVE)
[2016-09-23] MEDS ORDERED: PROMETHAZINE HCL 25 MG/1 ML VIAL IM ONE (21:15)
[2016-09-23] MEDS ORDERED: PROMETHAZINE HCL 25 MG/1 ML VIAL ONE (21:21)
[2016-09-23] MEDS: PRAZOSIN HCL 1 MG CAPSULE PO SCH (22:45)
[2016-09-24] VITALS: BP 109/61
[2016-09-24 04:00] VITALS: BP 109/81
--- NOTE | 2016-09-24 04:05 | NUR ---
O2 2l/min via NC ( Spo2=88% ) O2 2 l/min via NC given, actual SpO2=95%.Safety measures in place : bed on lowest position with side rails x2 up for safety, call light within reach. Will continue to monitor closely and offer help.
--- NOTE | 2016-09-24 06:55 | NUR ---
END OF SHIFT NOTE : Pt. is 35 years old man, admitted to [facility] because of opiates, benzo , cocaine, ETOH dependency. He is full code, regular diet, NKA. He presents with irritable mood, flat affect, he reports anxiety, denies nausea, vomiting or diarrhea. Bai 12F placed properly , yellow urine obtained. Client continues to require 1:1 sitter for assistance with mobility, meals, and all ADLs. Encouraged increased fluids as tolerated. Encouraged group therapy attendance. He completed 5 day Valium taper and 5 day Subutex taper, tolerated well. PRN ZOFRAN IM and PHENERGAN IM (one time order) were given during my shift. LAST CIWA=3, COWS=3 at 0400 , OQVLRB=310 ml, urine [id number]=[id number], vomited x2 during the shift, slept 9 hours.O2 2l/min via NC was given at 04:05 because of Spo2=88%-91% . Safety measures in place : bed on lowest position with side rails x2 up for safety, call light within reach. Will continue to monitor closely and offer help.
[2016-09-24] MEDS: PANTOPRAZOLE SODIUM 40 MG TABLET.DR PO SCH (07:17)
--- NOTE | 2016-09-24 07:30 | NUR ---
start of shift note: pt is sleeping in bed at this time, pt without complaints or discomfort. pt without nasal cannula at this time. saturation at 94 % V/S WNL. pt remains on 1:1. gait is stable. but remains on Bai catheter. discussed with community development planner and MD that pt will be discharged with Bai catheter. pt at times is disoriented and at times A/O X4. pt is admitted to [facility] for etoh/opiate/benzo withdrawal/dependence. pt is set for discharge today will hold discharge until pt is medically cleared by .
[2016-09-24] MEDS: BOOST PLUS 237 ML LIQUID (RICH CHOCOLATE) PO SCH (08:27)
[2016-09-24] MEDS: DIVALPROEX 250 MG TABLET.DR PO SCH (09:37)
[2016-09-24] MEDS: GABAPENTIN 300 MG CAPSULE PO SCH (09:37)
[2016-09-24] MEDS: FOLIC ACID 1 MG TABLET PO SCH (09:37)
[2016-09-24] MEDS: DOCUSATE SODIUM 250 MG CAPSULE PO SCH (09:37)
[2016-09-24] MEDS: THIAMINE HCL 100 MG TABLET PO SCH (09:38)
[2016-09-24] MEDS: LIDOCAINE 5% PATCH TD SCH (09:38)
[2016-09-24] MEDS: HYDROCORTISONE 1% CREAM 30 GM TUBE TP SCH (09:38)
[2016-09-24] MEDS: MULTIVITAMINS,THERAPEUTIC TABLET PO SCH (09:38)
--- NOTE | 2016-09-24 10:45 | NUR ---
discharge note: pt left the unit with strong gait, no withdrawal symptoms, explained pt teaching and prescriptions to pt, pt verbalized just put it in the bag and ill look at it later, pt completed taper on the . pt still with episodes of disorientation. pt was medically cleared for discharge by MD. pt left the unit with kimble catheter. yellow color draining well no s/s of hematuria or decreased output. pt will be discharged to a dual diagnosis facility who will accommodate pts needs. pt was transferred via private [facility]
[2016-09-25 17:11] LABS: *CANNABINOID (THC) Positive (.); *OPIATES Negative ng/mL (Cutoff=300)
== END 2016-09-24 10:45 | disposition home or self-care (01) | DRG 895 ==
LOC: SRC 19:20
PROVIDERS: ADMIT Internal Medicine; ATTEND Internal Medicine
PROC: HZ2ZZZZ Detoxification Services for Substance Abuse Treatment (ICD-10-PCS; principal; 2016-09-14)
PROC: HZ31ZZZ Individual Counseling for Substance Abuse Treatment, Behavioral (ICD-10-PCS; 2016-09-15)
DX: F10.230 Alcohol dependence with withdrawal, uncomplicated (principal); J45.21 Mild intermittent asthma with (acute) exacerbation; F31.60 Bipolar disorder, current episode mixed, unspecified; F23 Brief psychotic disorder; F11.23 Opioid dependence with withdrawal; Y90.9 Presence of alcohol in blood, level not specified; F17.210 Nicotine dependence, cigarettes, uncomplicated; R33.9 Retention of urine, unspecified; K59.03 Drug induced constipation; K21.9 Gastro-esophageal reflux disease without esophagitis; Z81.1 Family history of alcohol abuse and dependence; Z81.3 Family history of other psychoactive substance abuse and dependence; Z81.8 Family history of other mental and behavioral disorders; G47.00 Insomnia, unspecified; L20.9 Atopic dermatitis, unspecified; G89.29 Other chronic pain; F43.10 Post-traumatic stress disorder, unspecified; D72.823 Leukemoid reaction; F13.21 Sedative, hypnotic or anxiolytic dependence, in remission; E86.0 Dehydration; F14.129 Cocaine abuse with intoxication, unspecified; Z63.8 Other specified problems related to primary support group; Z79.899 Other long term (current) drug therapy; G47.36 Sleep related hypoventilation in conditions classified elsewhere
CPT/HCPCS: 36415; 71010; 74000; 76770; 80164; 80307; 80349; 80353; 80361; 83690; 83735; 84100; 84443; 85025; 86580; 86592; 86705; 86803; 87040; 87086; 87340; 87806; 93005; A4663; A9150; C9113; G6040-TC; J0500; J0780; J1885; J2405; J2550; J3411; J3490; J3535; Q0162; Q0163

== ENCOUNTER 2016-09-19 13:43 | Outpatient (CLI) | payer BC ==
[~2016-09-19 13:43] MED LIST: ALBU18HF2 INH; DIAZ5TAB PO; DICY10CA59 PO; DIVA500T2 PO; IBUP-23 PO; OMEP20TA20 PO; PRAZ5CAP2 PO; QUET300T2 PO
== END 2016-09-19 23:59 | disposition other institution (70) ==
LOC: CT 13:43
PROVIDERS: ATTEND Internal Medicine
DX: J34.1 Cyst and mucocele of nose and nasal sinus (principal)
CPT/HCPCS: 70450